=== PATIENT | male | born 1950 | race Caucasian/White ===

== ENCOUNTER → 2019-06-07 | Outpatient (CLI) | payer MEDICARE ==
[2019-06-07 09:53] LABS: HCT 43.1 % (39.0-53.0); HGB 14.3 gm/dL (13.0-17.5); MCH 29.1 pg (25.0-35.0); MCHC 33.2 g/dL (31.0-37.0); MCV 87.5 fL (80.0-100.0); Mean Platelet Volume 8.1; Platelet Count 255 k/uL (150-450); RBC 4.92 m/uL (4.30-5.90); RDW 12.3 % (11.5-15.5); WBC 6.4 k/uL (3.8-10.6)
[2019-06-07 16:51] LABS: African American GFR (CKD) 107.1 (60.0-200.0); Anion Gap 7.2 mmol/L (4.00-12.00); BUN/Creat Ratio 22.5 Ratio (12.00-20.00); Carbon Dioxide 26.8 mmol/L (21.6-31.8); Chol/HDL Ratio 3.59; LDL Cholesterol,Calculated 68.2 mg/dL (0.0-131.0); Magnesium 1.7 mg/dL (1.5-2.4); Non-African American GFR(CKD) 92.4 (60.0-200.0); Potassium 4.3 mmol/L (3.5-5.5); VLDL Calculation 37.8 mg/dL (5.00-40.00)
[2019-06-07 16:59] LABS: T4, Free (Free Thyroxine) 1.1 ng/dL (0.80-1.80)
[2019-06-07 20:21] LABS: Hemoglobin A1C 6.9 % (4.0-6.0)
== END | disposition home or self-care (01) ==
LOC: LABWHC1 09:12
PROVIDERS: ATTEND Nurse Practitioner
DX: I25.10 Atherosclerotic heart disease of native coronary artery without angina pectoris (principal); E11.9 Type 2 diabetes mellitus without complications; R00.2 Palpitations; I10 Essential (primary) hypertension; E78.00 Pure hypercholesterolemia, unspecified; E55.9 Vitamin D deficiency, unspecified; G47.30 Sleep apnea, unspecified
CPT/HCPCS: 36415; 80048; 80061; 82306; 83036; 83735; 84439; 84443; 85027

== ENCOUNTER 2019-12-19 09:02 | Inpatient (IN) | payer MEDICARE ==
[2019-12-19] MEDS ORDERED: SODIUM CHLORIDE 0.9% 1,000 ML IV STA (09:30)
--- NOTE | 2019-12-19 09:44 | ED ---
General Adult HPI - General Chief complaint: Dizziness Stated complaint: blurred vision, dizziness Time Seen by Provider: 12/19/19 09:24 Source: patient, family, RN notes reviewed Mode of arrival: ambulatory Limitations: no limitations - History of Present Illness Initial comments: Patient is a pleasant 69-year-old male presenting to the emergency department with complaints of episodes of being off balance. Symptoms have been present for the past couple of weeks. Symptoms have been getting worse lately. Symptoms usually only last less than a minute however one of the recent days was present the majority of the day. 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 Patient did have some paresthesias of his left leg at one point. No isolated area of weakness. No confusion. No speech changes. - Related Data Home Medications Medication Instructions Recorded Confirmed Brimonidine Tartrate/Timolol 1 drop BOTH EYES BID 12/23/15 12/19/19 [Combigan 0.2%-0.5% Eye Drops] Mometasone/Formoterol [Dulera 100 2 puff INHALATION RT-BID 12/23/15 12/19/19 Mcg-5 Mcg Inhaler] Multivitamins, Thera [Multivitamin 1 tab PO DAILY 12/23/15 12/19/19 (formulary)] Artificial Tears-Hypromellose 1 drop BOTH EYES BID 12/19/19 12/19/19 [Artificial Tear Drops] Aspirin EC [Ecotrin Low Dose] 81 mg PO DAILY 12/19/19 12/19/19 Atorvastatin [Lipitor] 40 mg PO DAILY 12/19/19 12/19/19 Cetirizine HCl [Zyrtec] 10 mg PO DAILY 12/19/19 12/19/19 Latanoprost/Pf [Latanoprost 0.005% 1 drop BOTH EYES HS 12/19/19 12/19/19 Eye Drop] lisinopriL [Zestril] 5 mg PO DAILY 12/19/19 12/19/19 sitaGLIPtin PHOS/metFORMIN HCL 1 tab PO BID 12/19/19 12/19/19 [Janumet 50-1,000 mg Tablet] Previous Rx's Medication Instructions Recorded Clopidogrel [Plavix] 75 mg PO DAILY #90 tab 01/19/16 atenoloL [Tenormin] 25 mg PO DAILY #0 01/19/16 Allergies Allergy/AdvReac Type Severity Reaction Status Date / Time No Known Allergies Allergy Verified 12/19/19 10:24 Review of Systems ROS Statement: Those systems with pertinent positive or pertinent negative responses have been documented in the HPI. ROS Other: All systems not noted in ROS Statement are negative. Constitutional: Denies: fever Eyes: Reports: as per HPI. Denies: eye pain ENT: Denies: ear pain Respiratory: Denies: cough Cardiovascular: Denies: chest pain Endocrine: Denies: fatigue Gastrointestinal: Denies: abdominal pain Genitourinary: Denies: dysuria Musculoskeletal: Denies: back pain Skin: Denies: rash Neurological: Reports: as per HPI. Denies: headache, weakness, confusion Past Medical History Past Medical History: Coronary Artery Disease (CAD), Diabetes Mellitus, Eye Disorder, Hyperlipidemia, Hypertension Additional Past Medical History / Comment(s): GLAUCOMA, PANCREATITIS X2. RECENT ABN STRESS TEST, THEN HAD C.CATH W/ PTCA AND STENT 01/18/16. History of Any Multi-Drug Resistant Organisms: None Reported Past Surgical History: Heart Catheterization With Stent Additional Past Surgical History / Comment(s): HX OF ANGIOPLASTY X2; 01-18-16 HEART CATH W/STENT TO LAD.01-24-16 HEART CATH W/STENTS X2 TO RCA. Past Anesthesia/Blood Transfusion Reactions: No Reported Reaction Date of Last Stent Placement:: 01/18/16 Past Psychological History: No Psychological Hx Reported Smoking Status: Former smoker Past Alcohol Use History: Occasional Past Drug Use History: None Reported - Past Family History Father Family Medical History: Cancer, Diabetes Mellitus Additional Family Medical History / Comment(s): LEUKEMIA Mother Family Medical History: Diabetes Mellitus, Myocardial Infarction ([place]) General Exam Limitations: no limitations General appearance: alert, in no apparent distress Head exam: Present: normocephalic Eye exam: Present: normal appearance, PERRL, EOMI. Absent: nystagmus ENT exam: Present: normal oropharynx Neck exam: Present: normal inspection Respiratory exam: Present: normal lung sounds bilaterally Cardiovascular Exam: Present: regular rate, normal rhythm GI/Abdominal exam: Present: soft. Absent: tenderness Extremities exam: Present: normal inspection Neurological exam: Present: alert, oriented X3, CN II-XII intact. Absent: motor sensory deficit Expanded Neurological exam: Present: protecting the airway Patient oriented to: Present: person, place, time Speech: Present: fluid speech Cranial nerves: EOM's Intact: Normal Cerebellar function: Finger to Nose: Normal Sensory exam: Upper Extremity Light Touch: Normal, Lower Extremity Light Touch: Normal Motor strength exam: RUE: 5, LUE: 5, RLE: 5, LLE: 5 Eye Response: (4) open spontaneously Motor Response: (6) obeys commands Verbal Response: (5) oriented Psychiatric exam: Present: normal affect, normal mood Skin exam: Present: normal color Course Vital Signs 12/19/19 09:08 Temperature 98.1 F Pulse Rate 65 Respiratory 19 Rate Blood Pressure 189/83 O2 Sat by Pulse 97 Oximetry EKG Findings - EKG Comments: EKG Findings:: Normal sinus rhythm cc 6. AZ 158. QRS 86. QT 386. QTc 44. Normal axis. LVH criteria. No acute ST change. Medical Decision Making - Medical Decision Making Patient reevaluated and resting comfortably in bed, remained symptom-free. Case was discussed with Dr. Robert, who will admit covering for Dr. Bazan. Case also discussed with neurology, Dr. Bartlett who will consult however does request discussing case with neural interventional list. Case was also discussed with Dr. Clements, who states patient can be admitted here however does request MRI. He states if there is evidence of stroke consider switching to blunt up. Otherwise he does want to follow-up the patient as an outpatient. - Lab Data Result diagrams: 12/19/19 10:03 12/19/19 10:03 Lab Results 12/19/19 12/19/19 12/19/19 Range/Units 10:03 10:03 10:03 WBC 7.8 (3.8-10.6) k/uL RBC 5.07 (4.30-5.90) m/uL Hgb 14.7 (13.0-17.5) gm/dL Hct 44.1 (39.0-53.0) % MCV 86.9 (80.0-100.0) fL MCH 29.0 (25.0-35.0) pg MCHC 33.4 (31.0-37.0) g/dL RDW 12.6 (11.5-15.5) % Plt Count 233 (150-450) k/uL Neutrophils % 67 % Lymphocytes % 20 % Monocytes % 9 % Eosinophils % 2 % Basophils % 1 % Neutrophils # 5.2 (1.3-7.7) k/uL Lymphocytes # 1.5 (1.0-4.8) k/uL Monocytes # 0.7 (0-1.0) k/uL Eosinophils # 0.2 (0-0.7) k/uL Basophils # 0.1 (0-0.2) k/uL PT 9.7 (9.0-12.0) sec INR 0.9 (<1.2) APTT 23.1 (22.0-30.0) sec Sodium 136 L (137-145) mmol/L Potassium 4.3 (3.5-5.1) mmol/L Chloride 106 (98-107) mmol/L Carbon Dioxide 26 (22-30) mmol/L Anion Gap 4 mmol/L BUN 20 (9-20) mg/dL Creatinine 0.80 (0.66-1.25) mg/dL Est GFR (CKD-EPI)AfAm >90 (>60 ml/min/1.73 sqM) Est GFR (CKD-EPI)NonAf >90 (>60 ml/min/1.73 sqM) Glucose 166 H (74-99) mg/dL Calcium 8.8 (8.4-10.2) mg/dL Total Bilirubin 0.5 (0.2-1.3) mg/dL AST 28 (17-59) U/L ALT 29 (4-49) U/L Alkaline Phosphatase 60 (38-126) U/L Troponin I (0.000-0.034) ng/mL Total Protein 5.9 L (6.3-8.2) g/dL Albumin 3.1 L (3.5-5.0) g/dL 12/19/19 Range/Units 10:03 WBC (3.8-10.6) k/uL RBC (4.30-5.90) m/uL Hgb (13.0-17.5) gm/dL Hct (39.0-53.0) % MCV (80.0-100.0) fL MCH (25.0-35.0) pg MCHC (31.0-37.0) g/dL RDW (11.5-15.5) % Plt Count (150-450) k/uL Neutrophils % % Lymphocytes % % Monocytes % % Eosinophils % % Basophils % % Neutrophils # (1.3-7.7) k/uL Lymphocytes # (1.0-4.8) k/uL Monocytes # (0-1.0) k/uL Eosinophils # (0-0.7) k/uL Basophils # (0-0.2) k/uL PT (9.0-12.0) sec INR (<1.2) APTT (22.0-30.0) sec Sodium (137-145) mmol/L Potassium (3.5-5.1) mmol/L Chloride (98-107) mmol/L Carbon Dioxide (22-30) mmol/L Anion Gap mmol/L BUN (9-20) mg/dL Creatinine (0.66-1.25) mg/dL Est GFR (CKD-EPI)AfAm (>60 ml/min/1.73 sqM) Est GFR (CKD-EPI)NonAf (>60 ml/min/1.73 sqM) Glucose (74-99) mg/dL Calcium (8.4-10.2) mg/dL Total Bilirubin (0.2-1.3) mg/dL AST (17-59) U/L ALT (4-49) U/L Alkaline Phosphatase (38-126) U/L Troponin I <0.012 (0.000-0.034) ng/mL Total Protein (6.3-8.2) g/dL Albumin (3.5-5.0) g/dL - Radiology Data Radiology results: report reviewed (Computed tomography scan the brain reveals no acute process atrophy. CT angiogram of the head and neck shows no stenosis that is significant. No aneurysmal change. Correlate for underlying vertebral basilar insufficiency small caliber distal vertebral arteries into the basilar artery with suspected retrograde filling.) Disposition Clinical Impression: Vertebral basilar insufficiency Disposition: ADMITTED IP TO THIS HOSP Condition: Serious Is patient prescribed a controlled substance at d/c from ED?: No Referrals: Shilpa Bazan MD [Primary Care Provider] - 1-2 days Tucker Clements MD [STAFF PHYSICIAN] - 1-2 days Decision Time: 12:25
[2019-12-19 10:17] LABS: Basophils # (A) 0.1 k/uL (0-0.2); Basophils % (A) 1 %; Eosinophils # (A) 0.2 k/uL (0-0.7); Eosinophils % (A) 2 %; HCT 44.1 % (39.0-53.0); HGB 14.7 gm/dL (13.0-17.5); Lymphocytes # (A) 1.5 k/uL (1.0-4.8); Lymphocytes % (A) 20 %; MCHC 33.4 g/dL (31.0-37.0); MCV 86.9 fL (80.0-100.0); Mean Platelet Volume 8.5; Monocytes # (A) 0.7 k/uL (0-1.0); Monocytes % (A) 9 %; Neutrophils # (A) 5.2 k/uL (1.3-7.7); Neutrophils % (A) 67 %; Platelet Count 233 k/uL (150-450); RBC 5.07 m/uL (4.30-5.90); RDW 12.6 % (11.5-15.5); WBC 7.8 k/uL (3.8-10.6)
[2019-12-19 10:28] LABS: ALT 29 U/L (4-49); AST 28 U/L (17-59); African American GFR (CKD) >90 (>60 ml/min/1.73 sqM); Albumin 3.1 g/dL (3.5-5.0); Alkaline Phosphatase 60 U/L (38-126); Anion Gap 4 mmol/L; Blood Urea Nitrogen 20 mg/dL (9-20); Calcium 8.8 mg/dL (8.4-10.2); Carbon Dioxide 26 mmol/L (22-30); Chloride 106 mmol/L (98-107); Glucose 166 mg/dL (74-99); Non-African American GFR(CKD) >90 (>60 ml/min/1.73 sqM); Potassium 4.3 mmol/L (3.5-5.1); Sodium 136 mmol/L (137-145); Total Bilirubin 0.5 mg/dL (0.2-1.3); Total Protein 5.9 g/dL (6.3-8.2)
[2019-12-19 10:29] LABS: INR 0.9 (<1.2); Partial Thromboplastin Time 23.1 sec (22.0-30.0); Prothrombin Time 9.7 sec (9.0-12.0)
--- NOTE | 2019-12-19 10:56 | CT ---
EXAMINATION TYPE: CT brain wo con DATE OF EXAM: 12/19/2019 HISTORY: Dizziness. Balance issues. CT DLP: 1075.8 mGycm. Automated Exposure Control for Dose Reduction was Utilized. TECHNIQUE: CT scan of the head is performed without contrast. COMPARISON: None. FINDINGS: There is no acute intracranial hemorrhage or midline shift identified. There is diffuse v entricular and sulcal prominence consistent with diffuse cerebral atrophy greatest over bilateral fro ntal lobes. Horowitz-white matter differentiation fairly well-maintained. There is mucosal thickening and fluid in the right maxillary along with bilateral ethmoid and sphenoid and left frontal sinus. Right frontal sinus is hypoplastic The globes are intact and the visualized sinuses are clear. IMPRESSION: No acute intracranial hemorrhage or midline shift. There is mild to moderate diffuse ce rebral atrophy greatest over the bilateral frontal lobes. 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
--- NOTE | 2019-12-19 11:38 | CT ---
EXAMINATION TYPE: CT angio head neck DATE OF EXAM: 12/19/2019 HISTORY: Dizziness, balance issues. COMPARISON: NONE CT DLP: 606.1 mGycm. Automated Exposure Control for Dose Reduction was Utilized. TECHNIQUE: CTA scan of the head and neck are performed with IV Contrast, patient injected with 65 mL of Isovue 370, axial images are obtained, coronal and sagittal reformatted images are reviewed. Thre e-D reconstructed images are created on an independent workstation and reviewed. FINDINGS: Carotid/Vascular Structures: Normal three-vessel origin from aortic arch. Normal origin right common carotid artery from right brachiocephalic artery. No significant stenosis. Right common carotid arter y shows mild peripheral calcified plaque along its course. There is more moderate mixed plaque at the right carotid bulb extending into proximal internal carotid artery without significant stenosis. The re is patent right external carotid artery without significant stenosis. Mild to moderate eccentric mixed plaque left common carotid artery mid segment axial image 39. Mild t o moderate mixed plaque left proximal internal carotid artery just past carotid bulb without signific ant stenosis. Patent external carotid artery without significant stenosis. Tapering of the bilateral distal vertebral arteries. Improved opacification of the distal basilar art edmar, suggesting some retrograde filling of patent bilateral posterior indicating artery is noted. No aneurysmal change or significant focal stenosis. Hypoplastic anterior communicating artery. No significant focal stenosis or aneurysmal change in the anterior circulation. Moderate peripheral calcified plaque supraclinoid segment distal internal carot id arteries bilaterally. Other: Moderate to severe mucosal thickening with dependent fluid right maxillary sinus. Near-complet e opacification of bilateral ethmoid sinuses. Straightening of cervical spine with moderate spurring and disc space narrowing C5-C6 and C6-C7 level s. Posterior spurring effacing the anterior thecal sac at both levels. Some prominent but subcentimeter thoracic lymph nodes in the mediastinum. IMPRESSION: 1. No significant stenosis in common or internal carotid arteries bilaterally. 2. No aneurysmal change at the level of the [place]. Correlate for underlying vertebral basi lar insufficiency as there is tapering or markedly small caliber of the distal vertebral arteries int o the basilar artery with suspected retrograde filling through the [place] of [place].
[2019-12-19] MEDS ORDERED: ASPIRIN 325 MG TAB PO STA (12:26)
[2019-12-19] MEDS ORDERED: SODIUM CHLORIDE 0.9% 1,000 ML IV SCH (12:30)
--- NOTE | 2019-12-19 14:34 | MR ---
"EXAMINATION TYPE: MR brain wo con DATE OF EXAM: 12/19/2019 COMPARISON: CT brain earlier today. HISTORY: Dizziness, balance, Vertebral basilar insufficiency TECHNIQUE: Multiplanar, multisequence imaging of the brain and brainstem is performed without IV cont rast. FINDINGS: Diffusion weighted images demonstrate multifocal areas of increased signal on diffusion weighted imag es with diminished signal on ADC mapping and areas of T2 hyperintensity. There is mid and inferior le ft cerebellar involvement. Reference image 96 series 305. Some right-sided cerebellar involvement is likely present on T2 and FLAIR weighted images. There is brainstem involvement, largest lesions invol ve the gil bilaterally along the ventral aspect, right sided lesion measures 10 x 6 mm on axial imag e 12. Some areas do not show as well signal change on diffusion weighted imaging and ADC mapping . There is persistent diffuse ventricular and sulcal prominence. Occasional scattered scattered tiny fo cus of T2 hyperintensity throughout the white matter bilaterally. Midline structures demonstrate normal morphology. The craniocervical junction appears within normal limits. Abnormal signal voids involving distal vertebral and basilar artery with reconstituted signal void distally near [place]. Mucosal thickening and abnormal fluid signal throughout the bilateral maxillary sphenoid and ethmoid sinuses along with the large left frontal sinus. IMPRESSION: 1. 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 2. When correlating with CTA study, there is vertebral basilar insufficiency felt on basis of thrombu s or occlusion beginning distal vertebral artery level bilaterally through the proximal to mid basil ar artery level as there is better visualized loss of normal signal void with some retrograde flow in to the distal vertebral artery from the [place] suspected. 3. 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 Case discussed with patient's nurse via telephone at time of dictation. A Document Only message has been documented for Storm Mccarty in the [employer] | Critical Result s ystem on 12/19/2019 2:31 PM, Message ID [id number]."
[2019-12-19] MEDS ORDERED: lisinopriL 10 MG TAB PO SCH (15:45)
[2019-12-19] MEDS ORDERED: atenoloL 25 MG TAB PO SCH (15:45)
--- NOTE | 2019-12-19 15:52 | P.CNNES ---
History of Present Illness Consult date: 12/19/19 Requesting physician: Storm Mccarty Reason for Consult: stroke: dizziness, unsteady gait History of Present Illness: This is a 69-year-old handed gentleman medical history of diabetes, retention, significant coronary artery disease status post angioplasty as well as stents that came to the emergency department because of dizziness and unsteady gait and vomiting. Patient is accompanied with his daughter was at bedside and the he stated that his symptoms began about one month ago having dizziness and he could not describe dizziness just felt dizzy, he's been unsteady walk-in which comes and goes, transients repeated episode of slurred speech, and blurry vision in both eyes. The blurry vision is [id number] and we covered either eye it goes away. The episodes last for 10 seconds. Patient was taken to the an oph thalmologist his primary care doctor and no one knew what he had according to the patient and his daughter he was supposed to get an MRI of the brain and as an outpatient today. But because the patient had an episode of vomiting yesterday around 11 PM and was feeling dizzy and then he woke up today then he agreed to come to the hospital. Patient was resistant to come to the hospital because his in the hospital. He has a diabetes and hypertension for the last 5 years. He is taking aspirin 81 mg and Plavix 75 mg as well as Lipitor 40 mg daily. He is compliant taking his medication. His sugars 1 and between 140s to 160s. In the past he was told by his primary care physician that he thought he patient had atrial fibrillation he went to inside per diem rn but the per diem rn said that he did not have the atrial fibrillation. So patient was never placed on any anticoagulation as a result. In the ED the patient had CT of the head which was reported as no acute intracranial hemorrhage or midline shift. There is mild to moderate diffuse cerebral atrophy greatest over the basilar frontal lobe. 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 Patient had CT angiogram of the head and was reported as correlate for underlying vertebrobasilar insufficiency as there is tapering or Patsy small caliber of the distal vertebral arteries into the basilar artery with suspected retrograde filling through the [place]. No significant stenosis in the common or internal carotid arteries bilaterally. There was aneurysm. Patient did not get tpa since per ED had no symptoms and was outside window. The ED contacted me personally and regarding this patient and I notified them the to get a hold of the stroke team for possible intervention. They spoke with Dr. Clements and it was felt there is no intervention at. MRI the brain stat: Was reported as evidence of multifocal leuk 1 and subacute infarct in the posterior circulation involving the brainstem with the greatest involvement seen in the gil and involving the mid to inferior cerebellar hemisphere, left greater than right. 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 Also acute on chronic paranasal pansinusitis. Review of Systems Review of system: The 12 point system was reviewed and apparent positive and negative per HPI. Past Medical History Past Medical History: Coronary Artery Disease (CAD), Diabetes Mellitus, Eye Disorder, Hyperlipidemia, Hypertension, Sleep Apnea/CPAP/BIPAP Additional Past Medical History / Comment(s): NIDDM type II, neuropathy bilateral feet, pancreatitis x2, FORREST-does not wear device. History of Any Multi-Drug Resistant Organisms: None Reported Past Surgical History: Heart Catheterization With Stent, Tonsillectomy Additional Past Surgical History / Comment(s): PCI with stent in LAD/RCA, cardiac angioplasty in , bilateral laser eye surgery for glaucoma, colonoscopy Past Anesthesia/Blood Transfusion Reactions: No Reported Reaction Date of Last Stent Placement:: 01/24/16 Past Psychological History: No Psychological Hx Reported Additional Psychological History / Comment(s): Pt resides alone, his shabbir and her family live next door. Pt is independent. Smoking Status: Former smoker Past Alcohol Use History: Occasional Additional Past Alcohol Use History / Comment(s): Pt started smoking in 1966 and quit in 1982 Past Drug Use History: None Reported - Past Family History Father Family Medical History: Cancer Additional Family Medical History / Comment(s): LEUKEMIA Mother Family Medical History: Diabetes Mellitus Medications and Allergies Home Medications Medication Instructions Recorded Confirmed Type Brimonidine Tartrate/Timolol 1 drop BOTH EYES BID 12/23/15 12/19/19 History [Combigan 0.2%-0.5% Eye Drops] Mometasone/Formoterol [Dulera 100 2 puff INHALATION RT-BID 12/23/15 12/19/19 History Mcg-5 Mcg Inhaler] Multivitamins, Thera [Multivitamin 1 tab PO DAILY 12/23/15 12/19/19 History (formulary)] Clopidogrel [Plavix] 75 mg PO DAILY #90 tab 01/19/16 12/19/19 Rx atenoloL [Tenormin] 25 mg PO DAILY #0 01/19/16 12/19/19 Rx Artificial Tears-Hypromellose 1 drop BOTH EYES BID 12/19/19 12/19/19 History [Artificial Tear Drops] Aspirin EC [Ecotrin Low Dose] 81 mg PO DAILY 12/19/19 12/19/19 History Atorvastatin [Lipitor] 40 mg PO DAILY 12/19/19 12/19/19 History Cetirizine HCl [Zyrtec] 10 mg PO DAILY 12/19/19 12/19/19 History Latanoprost/Pf [Latanoprost 0.005% 1 drop BOTH EYES HS 12/19/19 12/19/19 History Eye Drop] lisinopriL [Zestril] 10 mg PO DAILY 12/19/19 12/19/19 History sitaGLIPtin PHOS/metFORMIN HCL 1 tab PO BID 12/19/19 12/19/19 History [Janumet 50-1,000 mg Tablet] Allergies Allergy/AdvReac Type Severity Reaction Status Date / Time No Known Allergies Allergy Verified 12/19/19 10:24 Physical Examination - Vital Signs Vital Signs: Vital Signs Temp Pulse Resp BP Pulse Ox 12/19/19 13:28 98.4 F 65 20 200/98 96 12/19/19 13:04 98.1 F 60 18 181/94 97 12/19/19 09:08 98.1 F 65 19 189/83 97 Intake and Output 12/19/19 12/19/19 12/19/19 06:59 14:59 22:59 Other: Weight 92.17 kg GENERAL: The patient is lying in bed and is not in acute distress. CHEST: The heart rate is regular rate rhythm. No murmurs to auscultation. No carotid bruit bilaterally----. LUNG: Clear to auscultation bilaterally no wheezing noted throughout. Not labored breathing. ABDOMEN/GI: Bowel sounds present in all 4 quadrants. No tenderness to palpation throughout. NEUROLOGICAL: Higher mental function: The patient is awake, alert, oriented to self, place and time. Patient is following commands. No aphasia and no neglect. Cranial nerves: The pupils are round, equal and reactive to light and accommodation. Visual jacobson: defect over the bilateral upper jacobson to confrontation throughout. Extraocular movement is intact no nystagmus is noted. Facial sensation is normal to touch throughout. The facial strength is normal throughout. Hearing is normal bilaterally to hand rub. Tongue is midline and moved [id number]-go-[id number] without any difficulty. No dysarthria is noted. Shoulder shrug is normal bilaterally. Motor: Gait: Normal and was not swaying towarding onse side or other. The strength is 5 over 5 throughout. Normal tone and bulk. Cerebellum: Normal finger to nose heel to chin bilaterally. Sensation: Sensation is normal to touch throughout. Reflexes (right/left): 2+ Plantars: Upgoing over the right and downgoing over the left. Results CT of the head which was reported as no acute intracranial hemorrhage or midline shift. There is mild to moderate diffuse cerebral atrophy greatest over the basilar frontal lobe. 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 CT angiogram of the head and was reported as correlate for underlying vertebrobasilar insufficiency as there is tapering or Patsy small caliber of the distal vertebral arteries into the basilar artery with suspected retrograde filling through the [place]. No significant stenosis in the common or internal carotid arteries bilaterally. There was aneurysm. - Laboratory Findings Comments: Patient's PT is 9.7, INR is 0.9, PTT is 23.1. CBC and BMP: 12/19/19 10:03 12/19/19 10:03 Abnormal Lab Findings: Abnormal Labs 12/19/19 10:03 Sodium 136 L Glucose 166 H Total Protein 5.9 L Albumin 3.1 L Assessment and Plan Assessment: This is a 69-year-old handed gentleman medical history of diabetes, hypertention, significant coronary artery disease status post angioplasty as well as stents that came to the emergency department because of dizziness, unsteady gait, slurred speech, vomiting and diplopia on either eye for past on month. His symptoms are intermittent. He decided to come to the hospital today because he had an episode of vomitting and dizziness yesterday and continued to have dizziness upon walking up today. Currently his exam shows field cut on bilateral upper jacobson. There is questionable atrial fibrillation Brainstem stroke Plan: -CT of the head which was reported as no acute intracranial hemorrhage or midline shift. There is mild to moderate diffuse cerebral atrophy greatest over the basilar frontal lobe. 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 -CT angiogram of the head and was reported as correlate for underlying vertebrobasilar insufficiency as there is tapering or Patsy small caliber of the distal vertebral arteries into the basilar artery with suspected retrograde filling through the [place]. No significant stenosis in the common or internal carotid arteries bilaterally. There was aneurysm. -MRI the brain stat: Was reported as evidence of multifocal leuk 1 and subacute infarct in the posterior circulation involving the brainstem with the greatest involvement seen in the gli and involving the mid to inferior cerebellar hemisphere, left greater than right. 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 Also acute on chronic paranasal pansinusitis. -The EKG showed normal sinus rhythm. Ventricle rate was 66. Minimal voltage criteria for left ventricular may be normal variant. Patient is on ASA 81mg, Plavix 75mg and Lipitor 40mg daily. I will stop Plavix and start Brilinta 90mg bid with one STAT dose. Also will increase Lipitor to 80mg daily with one STAT dose. Spoke with Dr. Clements regarding patient and because of patient fluctuation and Imaging finding it was decided to transfer the patient to [facility] for escalation of care. Thank you for the consultation Ochoa Lantigua MD Neuro-hospitalist Time with Patient: Greater than 30
[2019-12-19] MEDS ORDERED: ATORVASTATIN 80 MG TAB PO STA (16:59)
--- NOTE | 2019-12-19 19:47 | HP ---
HISTORY AND PHYSICAL COMBINED HISTORY AND PHYSICAL AND DISCHARGE SUMMARY: CHIEF COMPLAINT: Dizziness and gait instability and blurred vision. HISTORY OF PRESENT ILLNESS: This 69-year-old gentleman with a past medical history of multiple medical problems, including CAD, diabetes mellitus, hypertension, hyperlipidemia, history of sleep apnea, history of CAD and stent, being followed by Dr. Bazan in the outpatient setting, was complaining of dizziness and visual blurring for the past few days. Last night the patient had increasing dizziness. The patient also vomited. Because of increased symptoms, the patient was taken to [facility] and admitted for further evaluation and treatment. There is no history of any fever, rigor or chills. No history of headache, loss of consciousness, seizures. PAST MEDICAL HISTORY: CAD, diabetes mellitus, hypertension, hyperlipidemia, sleep apnea. HOME MEDICATIONS: 1. Zestril 10 mg p.o. daily. 2. Janumet 1 p.o. b.i.d. 3. Tenormin 25 mg daily. 4. Multivitamins 1 p.o. daily. 5. Dulera b.i.d. 6. Latanoprost at bedtime. 7. Plavix 75 mg p.o. daily. 8. Zyrtec 10 mg daily. 9. Combigan 1 drop b.i.d. 10.Lipitor 40 mg p.o. daily. 11.Ecotrin 81 mg p.o. daily. 12.Artificial Tears 1 drop b.i.d. ALLERGIES: NONE. FAMILY HISTORY: History of cancer, leukemia. SOCIAL HISTORY: Previous history of smoking. Occasional alcohol intake. REVIEW OF SYSTEMS: ENT: As mentioned earlier. CARDIOVASCULAR SYSTEM: No angina, palpitations. RESPIRATORY SYSTEM: As mentioned earlier. GI: As mentioned earlier. : No dysuria or retention. NERVOUS SYSTEM: No numbness, weakness. ALLERGY/IMMUNOLOGY: No asthma, hayfever. MUSCULOSKELETAL: As mentioned earlier. HEMATOLOGY/ONCOLOGY: No history of anemia. ENDOCRINE: History of diabetes. No hypothyroidism. CONSTITUTIONAL: As mentioned earlier. DERMATOLOGY: Negative. RHEUMATOLOGY: Negative. PSYCHIATRY: As mentioned earlier. PHYSICAL EXAMINATION: Patient alert and oriented x3. Pulse 52, blood pressure 119/100, respirations 16, temperature 98.4, pulse ox 97% on room air. HEENT: Conjunctivae normal. Oral mucosa moist. NECK: No jugular venous distention. No carotid bruit. No lymph node enlargement. CARDIOVASCULAR SYSTEM: S1, S2 muffled. RESPIRATORY SYSTEM: Breath sounds diminished at the bases. No rhonchi. No crackles. ABDOMEN: Soft, non-tender. No mass palpable. LEGS: No edema. No swelling. NERVOUS SYSTEM: Higher functions as mentioned earlier. Cranial nerves 2 to 12 grossly intact. No nystagmus. No diplopia. The gait is slightly unstable. Otherwise, no weakness. Finger-nose incoordination minimal noted on the left side. SKIN: No ulcer, rash, bleeding. JOINTS: No active deforming arthropathy. LYMPHATICS: No lymph node palpable in neck, axillae or groin. LABS: CBC within normal limits. Sodium is 136, glucose 166. Albumin is 3.1. The brain MRI, which was personally reviewed by me, showed multiple abnormalities, evidence of multifocal lacunar subacute infarcts in the posterior circulation in the brainstem with greatest involvement in the gil and involving the mid and inferior cerebral hemisphere on the left greater than the right. Vertebral basilar insufficiency felt on the basis of thrombus or occlusion beginning at the distal vertebral artery level bilaterally, acute on chronic paranasal pansinusitis. ASSESSMENT: 1. 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 2. Possible two-vessel occlusion, as mentioned earlier, and vertebrobasilar insufficiency as mentioned earlier. 3. Hyponatremia. 4. Gait dysfunction. 5. History of coronary artery disease. 6. Diabetes mellitus, type 2. 7. Hyperlipidemia. 8. Hypertension. 9. Sleep apnea. 10.History of peripheral neuropathy. 11.History of pancreatitis. 12.History of sleep apnea. 13.History of coronary artery disease, stent. 14.History of glaucoma. 15.Remote history of nicotine dependence. 16.FULL CODE. RECOMMENDATIONS AND DISCUSSION: In this 69-year-old gentleman who presented with multiple medical issues, I would recommend to continue current medications, continue with symptomatic treatment. Antiplatelets initiated. Neurology saw the patient. Brilinta has been initiated. The neurologist also discussed the case with neurointerventionist in [place], who would like the patient to be transferred for further evaluation and treatment. So the patient will be transferred to [place] for further evaluation and treatment. The patient is currently stable, but overall prognosis is guarded because of the above-mentioned multiple complex medical issues. Discussed with the family at length, who understands and agrees. Please refer to the medication reconciliation sheet for the current medication list, home medications, and a copy of this dictation will be forwarded to Dr. Bazan, who is the primary physician. MMSANGITAL / VINODN: [id number] /
[2019-12-19] MEDS ORDERED: TICAGRELOR 90 MG TAB PO SCH (21:00)
[2019-12-19] MEDS ORDERED: ATORVASTATIN 80 MG TAB PO SCH (21:00)
[2019-12-19] MEDS ORDERED: ARTIFICIAL TEARS-HYPROMELLOSE DROPS 15 ML BTL BOTH EYES SCH (21:00)
[2019-12-19] MEDS ORDERED: LATANOPROST 0.005% OPHTH DROPS 2.5 ML BTL BOTH EYES SCH (21:00)
[2019-12-19] MEDS ORDERED: TIMOLOL 0.5% OPHTH DROPS 5 ML BTL BOTH EYES SCH (21:00)
[2019-12-19] MEDS ORDERED: BRIMONIDINE TARTRATE 0.2% DROPS 5 ML BTL BOTH EYES SCH (21:00)
[2019-12-19 21:35] VITALS: BP 200/100; PULSE 55; RESP 18; TEMP 98.2
[2019-12-20] MEDS ORDERED: ASPIRIN 81 MG PO SCH (09:00)
[2019-12-20] MEDS ORDERED: ASPIRIN 325 MG TAB PO SCH (09:00)
[2019-12-20] MEDS ORDERED: ATORVASTATIN 40 MG TAB PO SCH (09:00)
--- NOTE | 2019-12-20 14:40 | ECHOF ---
Referral Reason:Thrombus MEASUREMENTS -------- HEIGHT: 175.3 cm WEIGHT: 92.1 kg BP: 189/83 RVIDd: 4.1 cm (< 3.3) IVSd: 1.1 cm (0.6 - 1.1) LVIDd: 4.9 cm (3.9 - 5.3) LVPWd: 1.2 cm (0.6 - 1.1) IVSs: 1.8 cm LVIDs: 2.8 cm LVPWs: 1.8 cm LA Diam: 4.1 cm (2.7 - 3.8) LAESV Index (A-L): 30.89 ml/m Ao Diam: 3.7 cm (2.0 - 3.7) AV Cusp: 2.2 cm (1.5 - 2.6) MV EXCURSION: 16.312 mm (> 18.000) MV EF SLOPE: 65 mm/s (70 - 150) EPSS: 0.7 cm MV E Corby: 0.84 m/s MV DecT: 129 ms MV A Corby: 0.76 m/s MV E/A Ratio: 1.10 AR PHT: 532 ms RAP: 5.00 mmHg RVSP: 56.76 mmHg FINDINGS -------- Sinus rhythm. This was a technically good study. The left ventricular size is normal. There is borderline concentric left ventricular hypertrophy. Overall left ventricular systolic function is normal with, an EF between 60 - 65 %. The right ventricle is moderately enlarged. LA is midly dilated 29-33ml/m2. The right atrium is normal in size. Interatrial and interventricular septum intact. The aortic valve is trileaflet and appears structurally normal. There is vjdm-[id number]-vgbkplet aortic re gurgitation. Moderate mitral regurgitation is present. Mild tricuspid regurgitation present. There is moderate to severe pulmonary hypertension. The rig ht ventricular systolic pressure, as measured by Doppler, is 56.76mmHg. Trace/mild (physiologic) pulmonic regurgitation. The aortic root size is normal. Normal inferior vena cava with normal inspiratory collapse consistent with estimated right atrial pre ssure of 5 mmHg. There is no pericardial effusion. CONCLUSIONS -------- 1. The left ventricular size is normal. 2. There is borderline concentric left ventricular hypertrophy. 3. Overall left ventricular systolic function is normal with, an EF between 60 - 65 %. 4. The right ventricle is moderately enlarged. 5. LA is midly dilated 29-33ml/m2. 6. The aortic valve is trileaflet and appears structurally normal. 7. There is [id number] aortic regurgitation. 8. Moderate mitral regurgitation is present. 9. Mild tricuspid regurgitation present. 10. There is moderate to severe pulmonary hypertension. 11. The right ventricular systolic pressure, as measured by Doppler, is 56.76mmHg. 12. Trace/mild (physiologic) pulmonic regurgitation. 13. There is no pericardial effusion. CHANNEL MACHINE OPERATOR: Nadine Recinos RDCS
== END 2019-12-19 21:48 | disposition short-term general hospital (02) | DRG 65 ==
LOC: EC 09:02 → 3SCARD 12:27
PROVIDERS: ADMIT Internal Medicine; ATTEND Internal Medicine
DX: I63.213 Cerebral infarction due to unspecified occlusion or stenosis of bilateral vertebral arteries (principal); E87.1 Hypo-osmolality and hyponatremia; G46.3 Brain stem stroke syndrome; G45.0 Vertebro-basilar artery syndrome; I11.9 Hypertensive heart disease without heart failure; E11.39 Type 2 diabetes mellitus with other diabetic ophthalmic complication; E11.42 Type 2 diabetes mellitus with diabetic polyneuropathy; J01.41 Acute recurrent pansinusitis; H53.8 Other visual disturbances; R20.2 Paresthesia of skin; R42 Dizziness and giddiness; R47.81 Slurred speech; R26.89 Other abnormalities of gait and mobility; R40.2362 Coma scale, best motor response, obeys commands, at arrival to emergency department; R40.2142 Coma scale, eyes open, spontaneous, at arrival to emergency department; R40.2252 Coma scale, best verbal response, oriented, at arrival to emergency department; R29.700 NIHSS score 0; E78.5 Hyperlipidemia, unspecified; I25.10 Atherosclerotic heart disease of native coronary artery without angina pectoris; H40.9 Unspecified glaucoma; H42 Glaucoma in diseases classified elsewhere; G47.33 Obstructive sleep apnea (adult) (pediatric); Z79.82 Long term (current) use of aspirin; Z79.02 Long term (current) use of antithrombotics/antiplatelets; Z79.84 Long term (current) use of oral hypoglycemic drugs; Z79.51 Long term (current) use of inhaled steroids; Z79.899 Other long term (current) drug therapy; Z87.19 Personal history of other diseases of the digestive system; Z95.5 Presence of coronary angioplasty implant and graft; Z87.891 Personal history of nicotine dependence; Z83.3 Family history of diabetes mellitus; Z82.49 Family history of ischemic heart disease and other diseases of the circulatory system; Z80.6 Family history of leukemia
CPT/HCPCS: 36415; 70450; 70496; 70498; 70551; 80053; 84484; 85025; 85610; 85730; 93005; 93306; 96360; 96361; 99285

== ENCOUNTER → 2020-09-29 | Outpatient (CLI) | payer MEDICARE ==
--- NOTE | 2020-09-29 15:30 | CONS ---
CONSULTATION DATE OF SERVICE: 09/29/2020 This 70-year-old gentleman has [facility] for obstructive sleep apnea-hypopnea syndrome. HISTORY OF PRESENT ILLNESS/SLEEP-WAKE EVALUATION: The patient was diagnosed with obstructive sleep apnea 5 years ago and was started on treatment with CPAP at that time, but he was not able to use the CPAP. He does not like it. He does not use it. His sleep schedule is from 10 p.m. until 6:30 or 7 a.m., basically 7 days a week. Sometimes he has problems with falling asleep. He has a TV set in the bedroom. He usually sleeps on the back position. He snores and has episodes of stopped breathing during sleep. He wakes up from sleep 2 times with nocturia. No history of hypnagogic hallucinations, sleep paralysis or cataplexy. During the day he usually does not take naps. Gipsy Sleepiness Scale is 6, but he has problems with memory. PAST MEDICAL HISTORY: Positive for hypertension, coronary artery disease, stroke with visual changes one year ago, asthma, allergies, diabetes mellitus, hyperlipidemia, increased eye pressure. PAST SURGICAL HISTORY: Stent insertions about 3 or 4 years ago. MEDICATIONS: 1. Atorvastatin 80 mg once a day. 2. Janumet once a day. 3. Lisinopril 20 mg twice a day. 4. Atenolol 25 mg twice a day. 5. Dulera inhaler in the morning. 6. Brilinta 90 mg twice a day. 7. Zyrtec at bedtime. 8. Aspirin 81 mg once a day. 9. Lasix once a day; did not indicate dose. 10.Eye drops, latanoprost. 11.Combigan. SOCIAL HISTORY: Positive for smoking in the past; quit 37 years ago. Alcohol consumption: None. FAMILY HISTORY: Heart problems. REVIEW OF SYSTEMS: No fevers. No double vision. No recent chest pain. No shortness of breath. No abdominal pain. No bleeding episodes. No blood in the urine. No seizure episodes. Awakenings from sleep, memory problems. PHYSICAL EXAMINATION: GENERAL: A pleasant gentleman without distress. VITAL SIGNS: BP 201/94, HR 51, RR 18, height 5 feet 8 inches, weight 197.0, temperature 98.0, oxygen saturation at room air 98%, body mass index 29.9. HEENT: PERRLA, EOMI. Evaluation of oropharynx showed tongue protrudes midline. Extremely low position of soft palate. Mallampati IV. NECK: Supple. No JVD. Thyroid is not palpable. Neck is wide, 17 inches in circumference. LUNGS: Clear to percussion and to auscultation. Good air exchange. No wheezing or rhonchi. HEART: S1, S2 regular. No murmurs, gallops or rubs. ABDOMEN: Soft and nontender. Bowel sounds are present. No organomegaly appreciated. EXTREMITIES: No clubbing or cyanosis. FLORICULTURE TEACHER: Awake, alert, and oriented X3. Cranial nerves 2 to 7 intact. There is no fasciculation or atrophy. noted. No focal deficits observed. IMPRESSION: 1. History of obstructive sleep apnea diagnosed 5 years ago in another institution. Patient does not use CPAP treatment. He has loud snoring, episodes of stopped breathing during sleep, extremely low position of soft palate, Mallampati IV, wide neck, 17 inches in circumference; obstructive sleep apnea-hypopnea syndrome. 2. Overweight, borderline to obesity. BMI 29.9. 3. Hypertension. 4. Coronary artery disease, status post stent insertion. 5. History of stroke about one year ago with changes of vision. No residual deficit. 6. Hyperlipidemia. 7. Asthma. 8. Allergies. 9. Diabetes mellitus. 10.Increased eye pressure. PLAN: 1. Polysomnography for evaluation of patient's breathing during sleep. 2. CPAP/BiPAP titration if sleep study confirms obstructive sleep apnea-hypopnea syndrome. 3. Preferable position during sleep on the side. 4. No driving if patient feels any sleepiness. 5. I will see patient for follow up visit to explain results of testing and following plan. Thank you very much for referring this patient for consultation. Sincerely, Mike Angulo MD, PhD, FAASM Diplomat of [place] Board of Medical Specialties [place] Board of Internal Medicine Monkey Keeper of [facility] [place] MMODL / VINODN: [id number] /
== END ==
CPT/HCPCS: 99211

== ENCOUNTER → 2020-11-01 | Outpatient (CLI) | payer MEDICARE ==
--- NOTE | 2020-11-01 10:24 | MR ---
MR brain without contrast HISTORY: Cerebral infarction, I 63.9 Multiplanar multisequence imaging through the brain Correlation to brain MRI 12/19/2019 previous identified areas of brainstem infarct, left cerebellar inf arct noted on prior exam show improvement in hyperintensity and inversion recovery T2-weighted sequen frank as compared to prior. There is some residual hyperintensity present seen best on T2-weighted sequ ences, smaller area of the gil shows encephalomalacia consistent with remote infarct. There are norm al vascular flow voids in the anterior circulation, basilar artery shows flow void on T2, right verte bral artery shows some intermediate signal similar to prior exam, proximal improvement in flow void n oted in the left vertebral artery distally. There is no hemorrhage or hydrocephalus. Cortical atrophy is noted. Periventricular confluent and scattered hyperintensity and inversion recovery and T2-weigh mary sequences is similar to prior. The corpus callosum, pituitary, cervical medullary junction, cereb ellopontine angles are unremarkable. There is extensive inflammatory change in the ethmoid air cells, frontal sinus similar to prior exam, some improvement in the maxillary sinus disease. Orbits show symmetric appearance. IMPRESSION: Evidence of cerebrovascular accident involving the gil as described. Abnormal signal in the vertebrobasilar system shows a slight interval change, vessels of the posterior circulation remai n diminutive. Extensive sinus disease.
== END | disposition home or self-care (01) ==
LOC: RADMRIMAIN 06:15
PROVIDERS: ATTEND Psychiatry & Neurology Vascular Neurology
DX: I63.9 Cerebral infarction, unspecified (principal); G93.89 Other specified disorders of brain
CPT/HCPCS: 70551; 82565; 84520

== ENCOUNTER → 2020-11-18 | Outpatient (CLI) | payer MEDICARE | END | disposition home or self-care (01) | LOC: RADCTMAIN 06:51 | PROVIDERS: ATTEND Psychiatry & Neurology Vascular Neurology | DX: Z53.9 Procedure and treatment not carried out, unspecified reason (principal) | CPT/HCPCS: 82565; 84520 ==

== ENCOUNTER → 2021-03-23 | Outpatient (CLI) | payer MEDICARE ==
--- NOTE | 2021-03-24 00:22 | SFUN ---
SLEEP CENTER FOLLOW UP NOTE DATE OF SERVICE: 03/23/2021. 70-year-old gentleman has been followed in [facility] for treatment of obstructive sleep apnea-hypopnea syndrome. Recently, the patient had polysomnogram which showed the patient has obstructive sleep apnea. Then he had CPAP titration. I order for him CPAP equipment. Today is his first visit after he started to use CPAP treatment. The patient feels better with the machine. He sleeps better. He is not using humidifier at all. Feels better without the heating. [place] Sleepiness Scale today is 4, which is totally normal. I discussed results of the sleep studies with patient in detail. I checked his CPAP unit. Range of the pressure 5-8. Average pressure 7.8 cm of water. Usage in December, January 97% of the time and 87% of the time more than 4 hours. For the last month, the patient did not use it for 1 week. Subsequently, compliance is slightly less, but average still in good range 6.8 hours per night. Leak is 0 L/minute. perfect. Apnea-hypopnea index is only 1.4 which is totally normal. MEDICATIONS: Atorvastatin, Janumet, lisinopril, atenolol, Dulera inhaler, Zyrtec, aspirin, Lasix, latanoprost, Combigan. PHYSICAL EXAMINATION: GENERAL: Patient in no distress. BP 150/71, HR 50, RR 16, weight 194.6, temperature 97.3, oxygen saturation at room air 98%. Oropharynx: Extremely low position of soft palate, Mallampati 4. NECK: Supple, no JVD. Thyroid is not palpable. LUNGS: Clear to percussion and to auscultation. Good air exchange. No wheezing or rhonchi. HEART: S1, S2 regular. No murmurs, gallops, or rubs. ABDOMEN: Soft and nontender. Bowel sounds are present. No organomegaly appreciated. EXTREMITIES: No clubbing or cyanosis. NEIGHBORHOOD AIDE: Awake, alert, and oriented X3. Cranial nerves 2 to 7 intact. There is no fasciculation or atrophy. noted. No focal deficits observed. IMPRESSION: 1. Moderate obstructive sleep apnea-hypopnea syndrome, apnea-hypopnea index 20.3 with oxygen desaturation to 75.7%. Full normalization of respiration on CPAP. The patient demonstrated borderline compliance with treatment. 2. Hypertension. 3. Coronary artery disease, status post stent insertion. 4. History of stroke about one year ago without residual deficit. 5. Hyperlipidemia. 6. Asthma. 7. Allergies. 8. Diabetes mellitus. 9. Increased eye pressure. PLAN: 1. The patient does not want to use heated humidity. I adjusted humidity down to 0. Previously patient used it without water which increases risk for the fire. We discussed with the patient on details how to adjust humidity. He promised to follow recommendations. 2. Patient will continue to use PAP equipment every night for the whole night. 3. Sleep hygiene with regular time in bed for at least 7-1/2 to 8 hours. 4. Precautions related to driving. No driving if feeling sleepiness. 5. I will maintain all necessary prescription for PAP supplies including mask, tube, filters. 6. Watching weight. 7. Follow-up visit in 6 months or earlier if patient has any problems. Thank you very much for allowing me to participate in the management of your patient. Sincerely, Mike Angulo MD, PhD, FAASM Diplomat of [employer] Sleep Medicine Board of [employer] [facility] [place] MMODL / IJN: [id number] /
== END ==
LOC: SLEEP 13:13
PROVIDERS: ATTEND Internal Medicine
DX: G47.33 Obstructive sleep apnea (adult) (pediatric) (principal); G47.36 Sleep related hypoventilation in conditions classified elsewhere; I10 Essential (primary) hypertension; I25.10 Atherosclerotic heart disease of native coronary artery without angina pectoris; E78.5 Hyperlipidemia, unspecified; J45.909 Unspecified asthma, uncomplicated; T78.40XA Allergy, unspecified, initial encounter; E11.9 Type 2 diabetes mellitus without complications; H40.059 Ocular hypertension, unspecified eye; Z99.89 Dependence on other enabling machines and devices; Z95.5 Presence of coronary angioplasty implant and graft; Z86.73 Personal history of transient ischemic attack (TIA), and cerebral infarction without residual deficits; Z79.82 Long term (current) use of aspirin; Z79.899 Other long term (current) drug therapy

== ENCOUNTER → 2021-04-11 | Outpatient (CLI) | payer MEDICARE ==
--- NOTE | 2021-04-11 12:02 | US ---
EXAMINATION TYPE: US kidneys/renal and bladder DATE OF EXAM: 04/11/2021 COMPARISON: NONE CLINICAL HISTORY: N18.30 CKD. EXAM MEASUREMENTS: Right Kidney: 11.1x5.9x5.6 cm Left Kidney: 11.2x6.1x6.1 cm Right Kidney: No hydronephrosis or masses seen Left Kidney: 1.1x1.0x0.9 cysts noted. Bladder: wnl Bilateral Jets seen: Yes There is no evidence for hydronephrosis at this point in time. No nephrolithiasis is seen. No solid masses are identified. The urinary bladder is anechoic. Bilateral ureteral jets are seen. IMPRESSION: Tiny left renal cyst.
== END | disposition home or self-care (01) ==
LOC: RADUSWWP 10:33
PROVIDERS: ATTEND Internal Medicine Nephrology
DX: N18.30 Chronic kidney disease, stage 3 unspecified (principal); N28.1 Cyst of kidney, acquired
CPT/HCPCS: 76770

== ENCOUNTER 2022-08-14 11:22 | Observation (INO) | payer MEDICARE ==
[2022-08-14] MEDS ORDERED: ALPRAZolam 0.25 MG TAB PO PRN (11:36)
[2022-08-14] MEDS ORDERED: NITROGLYCERIN SL TABS 0.4 MG TAB SUBLINGUAL PRN (11:36)
[2022-08-14] MEDS ORDERED: ALPRAZolam 0.5 MG TAB PO PRN (11:36)
[2022-08-14 18:01] LABS: Basophils % (A) 0 %; Eosinophils # (A) 0.4 k/uL (0-0.7); Eosinophils % (A) 4 %; HCT 39.8 % (39.0-53.0); HGB 14.3 gm/dL (13.0-17.5); Lymphocytes # (A) 2.4 k/uL (1.0-4.8); Lymphocytes % (A) 24 %; MCH 30.4 pg (25.0-35.0); MCHC 35.9 g/dL (31.0-37.0); MCV 84.7 fL (80.0-100.0); Mean Platelet Volume 9.5; Monocytes # (A) 1.1 k/uL (0-1.0); Monocytes % (A) 11 %; Neutrophils # (A) 5.9 k/uL (1.3-7.7); Neutrophils % (A) 58 %; Platelet Count 191 k/uL (150-450); RDW 13.9 % (11.5-15.5); WBC 10.1 k/uL (3.8-10.6)
[2022-08-14 18:14] LABS: African American GFR (CKD) 25 (>60 ml/min/1.73 sqM); Anion Gap 9 mmol/L; Blood Urea Nitrogen 52 mg/dL (9-20); Calcium 9.2 mg/dL (8.4-10.2); Carbon Dioxide 21 mmol/L (22-30); Chloride 105 mmol/L (98-107); Glucose 111 mg/dL (74-99); Non-African American GFR(CKD) 22 (>60 ml/min/1.73 sqM); Sodium 135 mmol/L (137-145)
[2022-08-14] MEDS: SODIUM CHLORIDE 0.9% 1,000 ML in EMPTY BAG 1 BAG IV SCH ×2 (18:24→20:44)
[2022-08-14 18:27] LABS: Potassium 5.4 mmol/L (3.5-5.1)
[2022-08-14] MEDS: SYMBICORT 80-4.5 MCG INHALER INHALATION SCH (19:41)
[2022-08-14 20:47] LABS: Glucose,Whole Blood 180 mg/dL (70-110)
[2022-08-15] MEDS ORDERED: HEPARIN SODIUM,PORCINE 10,000 UNIT in SODIUM CHLORIDE 0.9% 1,000 ML IRRIGATION PRN (07:00)
[2022-08-15] MEDS ORDERED: HEPARIN SODIUM,PORCINE 2,500 UNIT in SODIUM CHLORIDE 0.9% 250 ML IRRIGATION PRN (07:00)
[2022-08-15] MEDS: SODIUM CHLORIDE 0.9% 1,000 ML in EMPTY BAG 1 BAG IV SCH (08:00)
[2022-08-15] MEDS: ARTIFICIAL TEARS-HYPROMELLOSE DROPS 15 ML BTL BOTH EYES SCH ×2 (08:04→21:59)
[2022-08-15] MEDS: BRIMONIDINE TARTRATE 0.2% DROPS 5 ML BTL BOTH EYES SCH ×2 (08:04→21:59)
[2022-08-15] MEDS: TIMOLOL 0.5% OPHTH DROPS 5 ML BTL BOTH EYES SCH ×2 (08:04→21:59)
[2022-08-15] MEDS: SYMBICORT 80-4.5 MCG INHALER INHALATION SCH ×2 (08:13→18:38)
[2022-08-15 08:35] LABS: Glucose,Whole Blood 113 mg/dL (70-110)
[2022-08-15] MEDS ORDERED: CLOPIDOGREL 75 MG TAB PO SCH (09:00)
[2022-08-15] MEDS ORDERED: LORATADINE 10 MG TAB PO SCH (09:00)
[2022-08-15] MEDS ORDERED: atenoloL 25 MG TAB PO SCH (09:00)
[2022-08-15] MEDS ORDERED: ASPIRIN 81 MG PO SCH (09:00)
[2022-08-15] MEDS ORDERED: ATORVASTATIN 40 MG TAB PO SCH (09:00)
[2022-08-15] MEDS ORDERED: MULTIVITAMINS, THERA 1 EACH TAB PO SCH (09:00)
[2022-08-15] MEDS: TACROLIMUS 1 MG CAP PO SCH ×2 (10:37→21:59)
--- NOTE | 2022-08-15 10:59 | PN ---
PROGRESS NOTE This is a gentleman with history of CAD with previous multivessel PCI, hypertension, hyperlipidemia, obstructive sleep apnea, wears a CPAP. 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 His creatinine is usually between 2.5 to 3.0. This gentleman was admitted electively for a cardiac cath, but because of elevated creatinine and above-mentioned conditions, he was brought in early yesterday and hydrated. This morning is comfortable, resting. Vital signs stable. No JVD. S1, S2 with a short systolic murmur is audible. Lungs are clear. Abdomen and lower extremity exam unchanged. Plan is to perform cardiac cath from right radial approach. Rationale, risks, benefits, options explained. The patient understands all details and wished to proceed with the procedure, which is scheduled for 10:30 today. The patient had multivessel intervention, last one was of the circumflex coronary artery performed in [place] when he was visiting and this was performed within the last 6 to 7 months in [place]. We will also check his BMP today. MMSANGITAL / IJN: [id number] /
[2022-08-15 11:02] LABS: African American GFR (CKD) 32 (>60 ml/min/1.73 sqM); Anion Gap 5 mmol/L; Blood Urea Nitrogen 38 mg/dL (9-20); Calcium 8.6 mg/dL (8.4-10.2); Carbon Dioxide 23 mmol/L (22-30); Chloride 110 mmol/L (98-107); Glucose 112 mg/dL (74-99); Magnesium 2.4 mg/dL (1.6-2.3); Non-African American GFR(CKD) 28 (>60 ml/min/1.73 sqM); Potassium 5.9 mmol/L (3.5-5.1); Sodium 138 mmol/L (137-145)
[2022-08-15] MEDS ORDERED: IV FLUID CONTINUATION 1,000 ML IV ONE (11:05)
[2022-08-15] MEDS ORDERED: fentaNYL (PF) 50 MCG/ML 2 ML AMP IV ONE (11:12)
[2022-08-15] MEDS ORDERED: LIDOCAINE 1% INJ 10MG/ML (30 ML VIAL-PF) SQ ONE (11:12)
[2022-08-15] MEDS: MIDAZOLAM 2 MG/2 ML VIAL IV ONE ×2 (11:12→11:17)
[2022-08-15] MEDS: VERAPAMIL SYRINGE (5 MG/10 ML) INTRAARTER ONE ×2 (11:14→11:43)
[2022-08-15] MEDS ORDERED: HEPARIN SODIUM 1,000 UN/ML (10ML VL) IV ONE (11:21)
[2022-08-15] MEDS ORDERED: IOPAMIDOL-370 100ML BTL INJ ONE (11:43)
[2022-08-15] MEDS ORDERED: RX INFO: IV CONTRAST WAS GIVEN 1 EACH MISC MISCELLANE PRN (11:54)
[2022-08-15 12:23] LABS: Glucose,Whole Blood 90 mg/dL (70-110)
[2022-08-15] MEDS ORDERED: DEXTROSE 50% SYRINGE 50 ML IVP STA (16:13)
[2022-08-15] MEDS ORDERED: INSULIN REGULAR 100 UNIT/ML VIAL (IV) IV ONE (16:13)
--- NOTE | 2022-08-15 16:15 | P.NPCON ---
History of Present Illness - Reason for Consult acute renal failure, chronic renal failure - History of Present Illness Reason for consultation: Acute kidney injury on chronic kidney disease History of present illness: I sent patient is a 72-year-old male seen in renal consultation for acute kidney injury on chronic kidney disease. Patient has chronic kidney disease stage IV with baseline creatinine near 2.3. 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 Patient was treated with Rituxan initial ly and then was started on calcineurin inhibitor. He is maintained on tacrolimus 1 mg twice a day at home. Creatinine was 2.81 on admission and is 2.29 today. He is currently receiving IV fluids. Patient presented to the hospital due to pain in his jaw was started about 2 weeks ago. Patient denies any chest pain or shortness of breath. Patient does have history of coronary artery disease with 4 cardiac stents. He does a history of diabetes. Patient's potassium tends to run high and is 5.9 today. He does take lisinopril outpatient. Denies vomiting or diarrhea. Oral intake has been fair. No gross hematuria. No fever or chills. Cardiology is following and catheterization is pending. He denies use of nonsteroidals. Vital signs are stable. General: No acute distress. HEENT: Head exam is unremarkable. LUNGS: No audible rhonchi or wheezes. HEART: Rate and Rhythm are regular. ABDOMEN: Soft, nontender. EXTREMITITES: No edema. Past Medical History Past Medical History: Coronary Artery Disease (CAD), Diabetes Mellitus, Eye Disorder, Hyperlipidemia, Hypertension, Sleep Apnea/CPAP/BIPAP Additional Past Medical History / Comment(s): NIDDM type II, neuropathy bilateral feet, pancreatitis x2, FORREST-does not wear device. History of Any Multi-Drug Resistant Organisms: None Reported Past Surgical History: Heart Catheterization With Stent, Tonsillectomy Additional Past Surgical History / Comment(s): PCI with stent in LAD/RCA, cardiac angioplasty in , bilateral laser eye surgery for glaucoma, colonoscopy Past Anesthesia/Blood Transfusion Reactions: No Reported Reaction Date of Last Stent Placement:: 01/24/16 Past Psychological History: No Psychological Hx Reported Additional Psychological History / Comment(s): Pt resides alone, his shabbir and her family live next door. Pt is independent. Smoking Status: Former smoker Past Alcohol Use History: Occasional Additional Past Alcohol Use History / Comment(s): Pt started smoking in 1966 and quit in 1982 Past Drug Use History: None Reported - Past Family History Father Family Medical History: Cancer Additional Family Medical History / Comment(s): LEUKEMIA Mother Family Medical History: Diabetes Mellitus Medications and Allergies Home Medications Medication Instructions Recorded Confirmed Type Brimonidine Tartrate/Timolol 1 drop BOTH EYES BID 12/23/15 08/14/22 History [Combigan 0.2%-0.5% Eye Drops] Clopidogrel [Plavix] 75 mg PO DAILY #90 tab 01/19/16 08/14/22 Rx Aspirin EC [Ecotrin Low Dose] 81 mg PO DAILY 12/19/19 08/14/22 History Cetirizine HCl [Zyrtec] 10 mg PO DAILY 12/19/19 08/14/22 History Latanoprost/Pf [Latanoprost 0.005% 1 drop BOTH EYES HS 12/19/19 08/14/22 History Eye Drop] Dapagliflozin Propanediol [Farxiga] 5 mg PO DAILY 08/14/22 08/14/22 History Empagliflozin [Jardiance] 10 mg PO DAILY 08/14/22 08/14/22 History Ergocalciferol (Vitamin D2) 1,250 mcg PO SUMOTUWE 08/14/22 08/14/22 History [Drisdol (50,000 Iu)] Ezetimibe [Zetia] 10 mg PO DAILY 08/14/22 08/14/22 History Furosemide [Lasix] 40 mg PO DAILY 08/14/22 08/14/22 History Insulin Glargine,Hum.rec.anlog 10 units SQ DAILY 08/14/22 08/14/22 History [Toujeo Solostar] Rosuvastatin [Crestor] 20 mg PO DAILY 08/14/22 08/14/22 History Spironolactone [Aldactone] 25 mg PO DAILY 08/14/22 08/14/22 History Tacrolimus [Prograf] 1 mg PO DAILY 08/14/22 08/14/22 History Tacrolimus [Prograf] 1.5 mg PO HS 08/14/22 08/14/22 History amLODIPine [Norvasc] 5 mg PO BID 08/14/22 08/14/22 History atenoloL [Tenormin] 25 mg PO BID 08/14/22 08/14/22 History lisinopriL [Prinivil] 20 mg PO HS 08/14/22 08/14/22 History sitaGLIPtin [Januvia] 100 mg PO DAILY 08/14/22 08/14/22 History Isosorbide Mononitrate ER [Imdur] 30 mg PO DAILY #90 tab 08/15/22 Rx Allergies Allergy/AdvReac Type Severity Reaction Status Date / Time No Known Allergies Allergy Verified 08/14/22 18:09 Physical Exam Vitals: Vital Signs Temp Pulse Resp BP BP Pulse Ox 08/15/22 15:39 48 L 16 121/61 97 08/15/22 14:33 44 L 16 108/52 96 08/15/22 13:39 43 L 16 134/69 97 08/15/22 13:09 45 L 16 156/74 95 08/15/22 12:39 44 L 16 109/61 97 08/15/22 12:09 98.0 F 44 L 16 130/74 95 08/15/22 11:54 43 L 16 126/69 96 08/15/22 08:15 54 L 08/15/22 08:04 16 08/15/22 07:30 97.8 F 45 L 16 130/72 97 08/15/22 02:38 98.2 F 74 16 133/77 95 08/14/22 20:00 97.5 F L 50 L 18 141/75 95 08/14/22 17:30 98.0 F 48 L 18 133/68 96 Intake and Output 08/15/22 08/15/22 08/15/22 06:59 14:59 22:59 Intake Total 400 Balance 400 Intake: IV 200 Oral 200 Other: Voiding Method Toilet # Voids 2 Results - Lab Results Most recent lab results Calcium 8.6 mg/dL (8.4-10.2) 08/15/22 10:19 Magnesium 2.4 mg/dL (1.6-2.3) H 08/15/22 10:19 08/14/22 17:37 08/15/22 10:19 Assessment and Plan Plan: Assessment: 1. Acute kidney injury mostly prerenal improved with IV hydration. Creatinine 2.81 on admission and is 2.29 today. 2. Chronic kidney disease stage IV secondary to biopsy-proven membranous nephropathy. Baseline creatinine near 2.3. 3. Coronary disease status post cardiac stenting. 4. Chronic hyperkalemia secondary to chronic kidney disease as well as tacrol imus, lisinopril. 5. Diabetes mellitus. Plan: Resume tacrolimus 1 mg twice daily. Check Prograf level. Hold lisinopril due to hyperkalemia. Maintain IV fluids. Risk of worsening renal function, potentially requiring renal replacement therapy, post-IV contrast exposure discussed with patient. Hold Farxiga for now a well. Continue to monitor renal function and urine output. Add Lokelma bid. 10 units IV regular insulin with an amp of D50 now. Repeat potassium level at 8 PM tonight. Thank you for the consultation. I will continue to follow the patient with you during his hospital stay.
--- NOTE | 2022-08-15 17:33 | CC ---
CARDIAC CATHETERIZATION REPORT DATE OF SERVICE: 08/15/2022. PROCEDURES PERFORMED: Left heart catheterization and coronary angiography. PERFORMED BY: Dr. Lázaro Lamas. Moderate conscious sedation time was 37 minutes. The patient was administered Versed and fentanyl. Oxygen saturations, hemodynamics, and EKG were monitored closely. CLINICAL INFORMATION: Mr. Jose Gonzalez is a 72-year-old gentleman with a history of CAD with multivessel PCI, hypertension, hyperlipidemia, and also membranous nephropathy with chronic kidney disease and creatinine in the range of 2.5 to 3.0. This gentleman underwent stenting of LAD and RCA performed by me in 2015. RCA had multiple stents. LAD had orbital atherectomy and multiple stents. At that time, circumflex had moderate disease. He did well until 2021 when he was in [place]. He ended up going in for an unstable angina and had a stenting of circumflex with orbital atherectomy. At that time, RCA had moderate disease and LAD was good. He has been having increasing anginal symptoms even with mild activity; and therefore, I recommended cardiac catheterization after due discussion regarding risks, benefits, and options. PROCEDURE NOTE: Under local anesthesia and strict aseptic precautions, a 6-Palauan introducer was placed in the right radial artery. Using JL3.5 and JR4 catheters, I performed coronary angiography, and a pigtail catheter was used to check LV pressures. I then had additional injections of the right coronary with an Amplatz 1 left diagnostic catheter. The sheath was taken out. TR band was applied as per protocol with saturation in the fingers of the right hand of 94%. The patient tolerated the procedure well without complication. Results were discussed with the patient as well as his daughter. CARDIAC CATHETERIZATION FINDINGS: The left ventricular end-diastolic pressure was 10 to 11 mmHg with no gradient across aortic valve on pullback with a pigtail catheter. CORONARY ANGIOGRAPHY FINDINGS: RIGHT CORONARY ARTERY: This is a dominant vessel that was stented in the proximal, mid, and distal portions, and PDA was dilated in 2015. The vessel now has an 80% ostial lesion with damping on cannulation, 40% to 50% lesion in the midportion, and PDA has an 80% lesion, but PDA is relatively smaller vessel. There is diffuse and [id number] calcification throughout the coronary artery including the ostium. LEFT MAIN CORONARY ARTERY: Short, patent, disease-free vessel that is calcified, bifurcates into LAD and circumflex. LEFT ANTERIOR DESCENDING CORONARY ARTERY: Good-caliber vessel, gives off a septal and diagonal branch proximally and a large diagonal branch in the midportion. Entire LAD has minor irregularities. Stented segment is patent. There is about a 35% to 40% narrowing with excellent flow. LEFT POSTERIOR CIRCUMFLEX CORONARY ARTERY: Nondominant vessel that has rotablator and stenting, widely patent. Obtuse marginal has about a 35% narrowing. Circumflex has 30% to 35% narrowing. No other significant disease. FINAL IMPRESSION: This patient has normal filling pressures, no gradient. Right-dominant system with ostial right coronary artery of 80% heavily calcified, mid right coronary artery of about 40% to 50%, and posterior descending artery of 80%. Left main, left anterior descending, and circumflex are free of significant disease. About a 35% circumflex and a 35% to 40% left anterior descending disease is noted. RECOMMENDATIONS: Findings were discussed with the patient and daughter. I will perform elective PCI of RCA. For now, we will pursue medical therapy. I will add Imdur 30 mg daily. See me in the office on August 17, at 02:15 p.m. Discharge instructions were given. The patient will be sent home today. MMODL / IJN: [id number] /
--- NOTE | 2022-08-15 18:09 | DS ---
DISCHARGE SUMMARY DIAGNOSES: 1. Unstable angina. 2. Chronic kidney disease. 3. Hypertension. 4. Hyperlipidemia. PROCEDURES PERFORMED: Left heart catheterization and coronary angiography. HOSPITAL COURSE: The patient was admitted early because of his chronic kidney disease, creatinine of 2.8. He was hydrated, and only 60 mL of contrast was given during the cardiac catheterization from right radial approach. The patient tolerated the procedure well. Findings were discussed. He will have elective PCI of RCA ostium and midportion and also PDA branch, and this will be addressed in a week or so after re-evaluating his kidney function. He will be discharged later this evening after adequate hydration. Discharge instructions regarding activity, diet, and medications were given. He will continue the same home medications plus Imdur 30 mg daily. MMODL / VINODN: [id number] /
[2022-08-15] MEDS ORDERED: SODIUM ZIRCONIUM CYCLOSILICATE 10 GM PACKET PO ONE (18:13)
[2022-08-15] MEDS ORDERED: SODIUM ZIRCONIUM CYCLOSILICATE 10 GM PACKET PO SCH (21:00)
[2022-08-15] MEDS ORDERED: LATANOPROST 0.005% OPHTH DROPS 2.5 ML BTL BOTH EYES SCH (21:00)
[2022-08-15 22:31] VITALS: BP 150/74; PULSE 52; RESP 17; TEMP 97.9
[2022-08-16] MEDS ORDERED: ISOSORBIDE MONONITRATE ER 15 MG TAB PO SCH (09:00)
== END 2022-08-15 23:10 | disposition home or self-care (01) ==
LOC: 6NMEDSUR 17:10
PROVIDERS: ADMIT Internal Medicine Interventional Cardiology; ATTEND Internal Medicine Interventional Cardiology
DX: I25.110 Atherosclerotic heart disease of native coronary artery with unstable angina pectoris (principal); I25.84 Coronary atherosclerosis due to calcified coronary lesion; I12.9 Hypertensive chronic kidney disease with stage 1 through stage 4 chronic kidney disease, or unspecified chronic kidney disease; E11.22 Type 2 diabetes mellitus with diabetic chronic kidney disease; N18.9 Chronic kidney disease, unspecified; E78.00 Pure hypercholesterolemia, unspecified; Z95.5 Presence of coronary angioplasty implant and graft; E78.5 Hyperlipidemia, unspecified; G47.33 Obstructive sleep apnea (adult) (pediatric); Z79.84 Long term (current) use of oral hypoglycemic drugs; Z79.82 Long term (current) use of aspirin; Z79.4 Long term (current) use of insulin; Z79.51 Long term (current) use of inhaled steroids; Z79.899 Other long term (current) drug therapy
CPT/HCPCS: 93458; 80048 ×2; 83735; 84132; 85025; G0379; G0378 ×2; C1769 ×2; C1894; J2250; J2001; J7507; J3010; J1644; Q9967

== ENCOUNTER → 2022-08-19 | Outpatient (CLI) | payer MEDICARE ==
[2022-08-19 23:01] LABS: African American GFR (CKD) 35.6 (60.0-200.0); Anion Gap 9.8 mmol/L (10.00-18.00); BUN/Creat Ratio 18.71 Ratio (12.00-20.00); Blood Urea Nitrogen 39.3 mg/dL (9.0-27.0); Calcium 9.3 mg/dL (8.7-10.3); Carbon Dioxide 24.2 mmol/L (20.0-27.5); Magnesium 2.6 mg/dL (1.5-2.4); Non-African American GFR(CKD) 30.7 (60.0-200.0); Potassium 5.2 mmol/L (3.5-5.5)
== END | disposition home or self-care (01) ==
LOC: LABWHC1 09:31
PROVIDERS: ATTEND Internal Medicine Interventional Cardiology
DX: N18.4 Chronic kidney disease, stage 4 (severe) (principal); N02.2 Recurrent and persistent hematuria with diffuse membranous glomerulonephritis
CPT/HCPCS: 36415; 80048; 80197; 83735

== ENCOUNTER 2022-08-21 16:55 | Inpatient (IN) | payer MEDICARE ==
[2022-08-21 17:20] LABS: Glucose,Whole Blood 115 mg/dL (70-110)
[2022-08-21] MEDS ORDERED: ALPRAZolam 0.5 MG TAB PO PRN (18:25)
[2022-08-21] MEDS ORDERED: NITROGLYCERIN SL TABS 0.4 MG TAB SUBLINGUAL PRN (18:25)
[2022-08-21] MEDS: SODIUM CHLORIDE 0.9% 1,000 ML in EMPTY BAG 1 BAG IV SCH (18:34)
[2022-08-21 19:00] LABS: Calcium 8.7 mg/dL (8.4-10.2); Potassium 5.1 mmol/L (3.5-5.1)
[2022-08-21 19:06] LABS: Prothrombin Time 10.5 sec (9.0-12.0)
[2022-08-21 19:25] LABS: Basophils # (A) 0.1 k/uL (0-0.2); Basophils % (A) 1 %; Eosinophils # (A) 0.2 k/uL (0-0.7); Eosinophils % (A) 2 %; HCT 39.1 % (39.0-53.0); HGB 13.1 gm/dL (13.0-17.5); Lymphocytes # (A) 2.3 k/uL (1.0-4.8); Lymphocytes % (A) 24 %; MCH 29.1 pg (25.0-35.0); MCHC 33.5 g/dL (31.0-37.0); MCV 86.7 fL (80.0-100.0); Mean Platelet Volume 8.7; Monocytes # (A) 0.9 k/uL (0-1.0); Monocytes % (A) 10 %; Neutrophils # (A) 5.6 k/uL (1.3-7.7); Neutrophils % (A) 60 %; Platelet Count 194 k/uL (150-450); RBC 4.51 m/uL (4.30-5.90); RDW 13.7 % (11.5-15.5); WBC 9.4 k/uL (3.8-10.6)
[2022-08-21] MEDS: ISOSORBIDE MONONITRATE ER 30 MG TAB.ER.24H PO SCH (20:09)
[2022-08-21] MEDS: EZETIMIBE 10 MG TAB PO SCH (20:09)
[2022-08-21] MEDS: CLOPIDOGREL 75 MG TAB PO SCH (20:10)
[2022-08-21] MEDS: atenoloL 25 MG TAB PO SCH (20:10)
[2022-08-21] MEDS: TACROLIMUS 1 MG CAP PO SCH (20:10)
[2022-08-21] MEDS: TIMOLOL 0.5% OPHTH DROPS 5 ML BTL BOTH EYES SCH (20:10)
[2022-08-21] MEDS: ATORVASTATIN 40 MG TAB PO SCH (20:10)
[2022-08-21] MEDS: LATANOPROST 0.005% OPHTH DROPS 2.5 ML BTL BOTH EYES SCH (20:10)
[2022-08-21] MEDS: BRIMONIDINE TARTRATE 0.2% DROPS 5 ML BTL BOTH EYES SCH (20:10)
[2022-08-21 20:46] LABS: Glucose,Whole Blood 158 mg/dL (70-110)
[2022-08-21] MEDS ORDERED: lisinopriL 20 MG TAB PO SCH (21:00)
[2022-08-22 06:16] LABS: Glucose,Whole Blood 102 mg/dL (70-110)
[2022-08-22] MEDS: amLODIPine 5 MG TAB PO SCH (06:23)
[2022-08-22] MEDS: MULTIVITAMINS, THERA 1 EACH TAB PO SCH (06:23)
[2022-08-22] MEDS: LORATADINE 10 MG TAB PO SCH (06:23)
[2022-08-22] MEDS: ASPIRIN 81 MG PO SCH (06:24)
[2022-08-22] MEDS: TIMOLOL 0.5% OPHTH DROPS 5 ML BTL BOTH EYES SCH ×2 (06:24→21:00)
[2022-08-22] MEDS: TACROLIMUS 1 MG CAP PO SCH ×2 (06:26→20:59)
[2022-08-22] MEDS: BRIMONIDINE TARTRATE 0.2% DROPS 5 ML BTL BOTH EYES SCH ×3 (06:27→21:02)
[2022-08-22] MEDS: ERGOCALCIFEROL 1,250 MCG (50,000 IU) CAPSULE PO SCH (06:29)
[2022-08-22] MEDS: SODIUM CHLORIDE 0.9% 1,000 ML in EMPTY BAG 1 BAG IV SCH (06:32)
[2022-08-22 07:17] LABS: Calcium 8.3 mg/dL (8.4-10.2); Potassium 4.9 mmol/L (3.5-5.1)
[2022-08-22] MEDS: atenoloL 25 MG TAB PO SCH (07:32)
[2022-08-22] MEDS ORDERED: LIDOCAINE 1% INJ 10MG/ML (20 ML MDV) ONE (10:10)
[2022-08-22] MEDS ORDERED: ASPIRIN 81 MG ONE (10:51)
[2022-08-22] MEDS ORDERED: ASPIRIN 81 MG PO ONE (10:52)
[2022-08-22] MEDS ORDERED: IV FLUID CONTINUATION 950 ML IV ONE (10:53)
[2022-08-22] MEDS ORDERED: MIDAZOLAM 2 MG/2 ML VIAL IV ONE ×2 (11:21→11:27)
[2022-08-22] MEDS ORDERED: fentaNYL (PF) 50 MCG/ML 2 ML AMP ONE (11:25)
[2022-08-22] MEDS ORDERED: fentaNYL (PF) 50 MCG/ML 2 ML AMP IV ONE (11:27)
[2022-08-22] MEDS ORDERED: HEPARIN SODIUM 1,000 UN/ML (10ML VL) IV ONE ×3 (11:40→12:34)
[2022-08-22] MEDS ORDERED: HYDROmorphone 0.5 MG/0.5 ML SYRINGE IVP ONE (12:25)
[2022-08-22] MEDS ORDERED: IOPAMIDOL-370 100ML BTL INJ ONE ×2 (12:28→12:44)
[2022-08-22] MEDS ORDERED: NITROGLYCERIN 1000MCG/10ML SYRINGE INTRACORON ONE (12:30)
[2022-08-22] MEDS ORDERED: niCARdipine Syringe (1,000 mcg/10 mL) INTRACORON ONE (12:33)
[2022-08-22] MEDS ORDERED: CLOPIDOGREL 75 MG TAB ONE (12:48)
[2022-08-22] MEDS ORDERED: CLOPIDOGREL 75 MG TAB PO ONE (12:51)
[2022-08-22] MEDS ORDERED: ATROPINE SULFATE 0.1 MG/ML 10ML SYRINGE IV PRN (12:54)
[2022-08-22] MEDS ORDERED: MAG HYDROX/AL HYDROX/SIMETH 30 ML CUP PO PRN (12:54)
[2022-08-22] MEDS ORDERED: RX INFO: IV CONTRAST WAS GIVEN 1 EACH MISC MISCELLANE PRN (12:54)
[2022-08-22] MEDS ORDERED: NITROGLYCERIN SL TABS 0.4 MG TAB SUBLINGUAL PRN (12:54)
[2022-08-22] MEDS ORDERED: ZOLPIDEM 5 MG TAB PO PRN (12:54)
[2022-08-22 13:27] LABS: Glucose,Whole Blood 116 mg/dL (70-110)
[2022-08-22] MEDS: SODIUM CHLORIDE 0.9% 1,000 ML IV SCH (13:30)
[2022-08-22 14:15] VITALS: BMI 27.2
[2022-08-22 16:30] LABS: Glucose,Whole Blood 196 mg/dL (70-110)
[2022-08-22 20:34] LABS: Glucose,Whole Blood 137 mg/dL (70-110)
[2022-08-22] MEDS: CLOPIDOGREL 75 MG TAB PO SCH (20:59)
[2022-08-22] MEDS: ATORVASTATIN 40 MG TAB PO SCH (20:59)
[2022-08-22] MEDS: EZETIMIBE 10 MG TAB PO SCH (20:59)
[2022-08-22] MEDS ORDERED: lisinopriL 10 MG TAB PO SCH (21:00)
[2022-08-22] MEDS: ISOSORBIDE MONONITRATE ER 30 MG TAB.ER.24H PO SCH (21:00)
[2022-08-22] MEDS: LATANOPROST 0.005% OPHTH DROPS 2.5 ML BTL BOTH EYES SCH (21:01)
--- NOTE | 2022-08-22 21:26 | PTCA ---
PERCUTANEOUSTRANS CORORONARY ANGIOGRAPHY DATE OF SERVICE: 08/22/2022. PROCEDURES PERFORMED: 1. Transvenous temporary pacemaker from right femoral venous approach. 2. Orbital atherectomy of proximal and ostial dominant right coronary artery. 3. Percutaneous transluminal coronary angioplasty and stenting with a drug-eluting stent of proximal/ostial right coronary artery. PERFORMED BY: Dr. Lázaro Lamas. Moderate conscious sedation time was 75 minutes. The patient was administered Versed. Oxygen saturation, hemodynamics, and EKG were monitored closely. CLINICAL INFORMATION: Mr. Jose Gonzalez is a 72-year-old gentleman with a known history of CAD and previous PCI of LAD, circumflex, and RCA. I performed a cardiac catheterization last week and noted that he had a significant ostial lesion, was heavily calcified, was brought in for elective PCI with orbital atherectomy. The patient has diabetes, hypertension, hyperlipidemia, CAD - triple-vessel disease, and also membranous nephropathy with chronic kidney disease and creatinine in the range of 2.5 to 3.0. His creatinine was 2.86. He was brought in yesterday and hydrated. This morning, it is 2.2. PROCEDURE NOTE: Under local anesthesia and strict aseptic precautions, a 6-Afghan introducer was placed in the right femoral vein and another 7-Afghan introducer in the right femoral artery. Using a balloon-tipped transvenous pacemaker, the tip was advanced and positioned in the right ventricular apex, and pacemaker thresholds were obtained. Pacemaker was kept on a standby rate of 35 and mA of 5.0. I then proceeded with PCI of RCA. Initially, I tried a standard 7-Afghan Hai-type guide catheter but could not get good seating into the right coronary artery. I used AL 0.75 guide catheter of 7-Afghan caliber. With this, I was able to cannulate the right coronary artery. A Runthrough wire was used to cross the lesion. This was a long Runthrough wire. The patient received a total of 7000 units of heparin. ACT was about 253. I advanced and positioned the Runthrough wire distally in the PLV branch. Using a teleport exchange catheter, I exchanged this to a Nitinol atherectomy wire. Orbital atherectomy was then performed using Dynaglide, and I did the cutting from distal to proximal 3 cuts and the next cut was from proximal to distal. Significant improvement was noted. I then exchanged the orbital atherectomy wire for a Runthrough wire using the same teleport catheter. I used a 2.5-caliber 15-mm NC Trek balloon and postdilated the ostium and proximal portion of RCA at 14 atmospheres. I then deployed a 3.5-caliber 15-mm long Xience stent at 14 atmospheres. Excellent angiographic result was achieved. Mid RCA lesion, which was heavily calcified, also opened up with good flow. Distally, the PLV has a distal lesion of 70%, and PDA has ostial lesion of 60%, but the flow has improved remarkably. The patient received 300 mg of Plavix. The sheath was taken out, and Angio-Seal device was used to secure hemostasis. Venous sheath was taken out, and manual compression was used. Excellent angiographic result without complication was achieved. Findings were discussed with the patient as well as his daughter, and I expect he will be discharged tomorrow if he remains stable. He will be hydrated, and we will check the renal function as well. MMODL / IJN: [id number] /
[2022-08-23] MEDS: SODIUM CHLORIDE 0.9% 1,000 ML IV SCH (01:28)
[2022-08-23] MEDS ORDERED: SODIUM CHLORIDE 0.9% 1,000 ML IV SCH (01:30)
[2022-08-23 06:06] LABS: Glucose,Whole Blood 134 mg/dL (70-110)
[2022-08-23 08:36] VITALS: BP 124/70; PULSE 60; RESP 18; TEMP 97.5
[2022-08-23] MEDS: TACROLIMUS 1 MG CAP PO SCH (08:37)
[2022-08-23] MEDS: LORATADINE 10 MG TAB PO SCH (08:37)
[2022-08-23] MEDS: BRIMONIDINE TARTRATE 0.2% DROPS 5 ML BTL BOTH EYES SCH (08:37)
[2022-08-23] MEDS: TIMOLOL 0.5% OPHTH DROPS 5 ML BTL BOTH EYES SCH (08:38)
[2022-08-23] MEDS: ASPIRIN 81 MG PO SCH (08:38)
[2022-08-23] MEDS: amLODIPine 5 MG TAB PO SCH (08:38)
[2022-08-23] MEDS: MULTIVITAMINS, THERA 1 EACH TAB PO SCH (08:38)
[2022-08-23] MEDS: ERGOCALCIFEROL 1,250 MCG (50,000 IU) CAPSULE PO SCH (08:38)
[2022-08-23 10:07] LABS: Basophils % (A) 0 %; Eosinophils # (A) 0.4 k/uL (0-0.7); Eosinophils % (A) 4 %; HCT 39.6 % (39.0-53.0); HGB 12.9 gm/dL (13.0-17.5); Lymphocytes # (A) 1.5 k/uL (1.0-4.8); Lymphocytes % (A) 16 %; MCH 28.4 pg (25.0-35.0); MCHC 32.6 g/dL (31.0-37.0); MCV 87.2 fL (80.0-100.0); Mean Platelet Volume 8.5; Monocytes # (A) 0.9 k/uL (0-1.0); Monocytes % (A) 9 %; Neutrophils # (A) 6.5 k/uL (1.3-7.7); Neutrophils % (A) 69 %; Platelet Count 196 k/uL (150-450); RBC 4.55 m/uL (4.30-5.90); RDW 13.9 % (11.5-15.5); WBC 9.4 k/uL (3.8-10.6)
[2022-08-23 10:24] LABS: Calcium 8.6 mg/dL (8.4-10.2); Potassium 4.9 mmol/L (3.5-5.1)
--- NOTE | 2022-08-24 15:16 | P.DS ---
Providers Date of admission: 08/21/22 16:55 Expected date of discharge: 08/23/22 Attending physician: Armando Lamas Consults: 08/22/22 12:54 Consult Physician Routine Consulting Provider: [facility] Consult Reason/Comments: Post Interventional Patient Do you want consulting provider notified?: Already Contacted Primary care physician: Shilpa Bazan [place] Hospital Course: This is a 72-year-old male patient of Dr. NICCI Lamas'tamera who underwent cardiac catheterization right radial approach on August 15 found to have significant narrowing of the ostium of the RCA with heavy calcification. LAD and circumflex were patent. LAD had orbital atherectomy and stenting in 2015 in February 2022 he had Rotablator and stenting of the circumflex. Patient has heavily calcified coronary arteries. Patient was brought back into the hospital for elective PCI of the RCA. Yesterday, patient underwent transvenous temporary pacemaker from the right femoral venous approach. Orbital atherectomy of the proximal and ostial dominant right coronary artery. Percutaneous transluminal coronary angioplasty and stenting with a drug-eluting stent of the proximal ostial right coronary artery. Patient hasn't had no postprocedure complications. He has been advised to discontinue atenolol, change lisinopril to bedtime. Patient will follow-up in the office in one week. Patient Condition at Discharge: Good Plan - Discharge Summary Discharge Rx Participant: No New Discharge Prescriptions: Continue Brimonidine Tartrate/Timolol [Combigan 0.2%-0.5% Eye Drops] 1 drop BOTH EYES BID Latanoprost/Pf [Latanoprost 0.005% Eye Drop] 1 drop BOTH EYES HS Aspirin EC [Ecotrin Low Dose] 81 mg PO DAILY Cetirizine HCl [Zyrtec] 10 mg PO DAILY Rosuvastatin [Crestor] 20 mg PO HS Ezetimibe [Zetia] 10 mg PO HS Ergocalciferol (Vitamin D2) [Drisdol (50,000 Iu)] 1,250 mcg PO SUMOTUWE Multivitamins, Thera [Multivitamin (formulary)] 1 tab PO DAILY Clopidogrel [Plavix] 75 mg PO HS Isosorbide Mononitrate ER [Imdur] 30 mg PO HS Furosemide [Lasix] 40 mg PO Q48H amLODIPine [Norvasc] 5 mg PO DAILY sitaGLIPtin [Januvia] 100 mg PO DAILY Dapagliflozin Propanediol [Farxiga] 5 mg PO DAILY Tacrolimus [Prograf] 1 mg PO BID Insulin Glargine,Hum.rec.anlog [Toujeo Solostar] 10 units SQ DAILY Changed lisinopriL [Prinivil] 10 mg PO HS #0 Spironolactone [Aldactone] 25 mg PO DAILY #0 Discontinued atenoloL [Tenormin] 25 mg PO BID Discharge Medication List Brimonidine Tartrate/Timolol [Combigan 0.2%-0.5% Eye Drops] 1 drop BOTH EYES BID 12/23/15 [History] Aspirin EC [Ecotrin Low Dose] 81 mg PO DAILY 12/19/19 [History] Cetirizine HCl [Zyrtec] 10 mg PO DAILY 12/19/19 [History] Latanoprost/Pf [Latanoprost 0.005% Eye Drop] 1 drop BOTH EYES HS 12/19/19 [History] Dapagliflozin Propanediol [Farxiga] 5 mg PO DAILY 08/14/22 [History] Ergocalciferol (Vitamin D2) [Drisdol (50,000 Iu)] 1,250 mcg PO SUMOTUWE 08/14/22 [History] Ezetimibe [Zetia] 10 mg PO HS 08/14/22 [History] Furosemide [Lasix] 40 mg PO Q48H 08/14/22 [History] Insulin Glargine,Hum.rec.anlog [Toujeo Solostar] 10 units SQ DAILY 08/14/22 [History] Rosuvastatin [Crestor] 20 mg PO HS 08/14/22 [History] Tacrolimus [Prograf] 1 mg PO BID 08/14/22 [History] amLODIPine [Norvasc] 5 mg PO DAILY 08/14/22 [History] sitaGLIPtin [Januvia] 100 mg PO DAILY 08/14/22 [History] Clopidogrel [Plavix] 75 mg PO HS 08/21/22 [History] Isosorbide Mononitrate ER [Imdur] 30 mg PO HS 08/21/22 [History] Multivitamins, Thera [Multivitamin (formulary)] 1 tab PO DAILY 08/21/22 [History] Spironolactone [Aldactone] 25 mg PO DAILY #0 08/23/22 [Rx] lisinopriL [Prinivil] 10 mg PO HS #0 08/23/22 [Rx] Follow up Appointment(s)/Referral(s): Armando Lamas MD [STAFF PHYSICIAN] - 1 Week (Call office for appointment 2:30 tomorrow.) Patient Instructions/Handouts: Heart Catheterization (DC) Discharge Disposition: HOME SELF-CARE
== END 2022-08-23 11:03 | disposition home or self-care (01) | DRG 247 ==
LOC: 3SCARD 16:55
PROVIDERS: ADMIT Internal Medicine Interventional Cardiology; ATTEND Internal Medicine Interventional Cardiology
PROC: 02C03Z7 Extirpation of Matter from Coronary Artery, One Artery, Orbital Atherectomy Technique, Percutaneous Approach (ICD-10-PCS; 2022-08-22)
PROC: 5A1223Z Performance of Cardiac Pacing, Continuous (ICD-10-PCS; 2022-08-22)
PROC: 02HK3JZ Insertion of Pacemaker Lead into Right Ventricle, Percutaneous Approach (ICD-10-PCS; 2022-08-22)
PROC: 027034Z Dilation of Coronary Artery, One Artery with Drug-eluting Intraluminal Device, Percutaneous Approach (ICD-10-PCS; principal; 2022-08-22 10:30)
DX: I25.110 Atherosclerotic heart disease of native coronary artery with unstable angina pectoris (principal); E11.22 Type 2 diabetes mellitus with diabetic chronic kidney disease; I12.9 Hypertensive chronic kidney disease with stage 1 through stage 4 chronic kidney disease, or unspecified chronic kidney disease; N18.9 Chronic kidney disease, unspecified; E78.00 Pure hypercholesterolemia, unspecified; G47.33 Obstructive sleep apnea (adult) (pediatric); Z98.61 Coronary angioplasty status; Z87.891 Personal history of nicotine dependence; Z28.310 Unvaccinated for COVID-19; Z79.82 Long term (current) use of aspirin; Z79.51 Long term (current) use of inhaled steroids; Z79.84 Long term (current) use of oral hypoglycemic drugs; Z79.02 Long term (current) use of antithrombotics/antiplatelets; Z79.4 Long term (current) use of insulin
CPT/HCPCS: 80048; 85025; 85610

== ENCOUNTER → 2022-09-27 | Outpatient (CLI) | payer MEDICARE ==
--- NOTE | 2022-09-27 14:39 | P.PN ---
Subjective DATE: 09/27/2022 FOLLOW UP VISIT. Patient with obstructive sleep apnea hypopnea syndrome return to sleep center for follow-up visit. Information from previous visit have been reviewed. Patient is using PAP equipment every night for the whole night, getting PAP supplies in time. The patient does not have significant problems with the mask, PAP unit and humidification. Floyd sleepiness scale is 2, which is normal. I checked information from PAP unit. PAP unit pressure 5-8, average 7.6 cm H2O. Usage is 100 % for more then 4 hours, average 5.7 hours per night. Leak is 13 l/m, which is in acceptable range. Apnea Hypopnea Index is 0.4, which is normal. MEDICATIONS:1. Amlodipine 5 mg twice a day 2. Furosemide 40 mg once a day 3. Ezetimibe 10 mg once a day 4. Januvia 100 mg once a day 5. Farxiga 5 mg once a day 6. Rosuvastatin 20 mg once a day 7. Tacrolimus 0.5 mg twice a day During physical exam: GENERAL: A pleasant patient without any distress. VITAL SIGNS: BP 172/90, HR 65, RR 18 , weight 190.6, temperature 97.8, oxygen saturation at room air 97 % . HEENT: PERRLA, EOMI.low position of soft palate, Mallapati 4 . NECK: Supple. No JVD. LUNGS: Clear to percussion and to auscultation. Good air exchange. No wheezing or rhonchi. HEART: S1, S2 regular. ABDOMEN: Soft and nontender.[] EXTREMITIES: No clubbing or cyanosis. 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 No focal deficit. Impressions: 1. Obstructive sleep apnea-hypopnea syndrome. Patient demonstrated great compliance with treatment, benefiting from treatment. 2. Hypertension. 3. Coronary artery disease status post stent insertion. 4. History of stroke about 2 years ago without residual deficit. 5. Asthma. 6. Hyperlipidemia. 7. Diabetes mellitus. 8. ALLERGIES. 9. Increased eye pressure. Plan: 1. Continue using PAP equipment every night for the whole night. 2. To change air filter at least 1-2 times per month. 3. PAP unit should stay lower then position of the head. 4. Advised patient to remove all remaining water from humidifier canister daily and make it dry after each usage. Refill canister with fresh distilled water before each usage. 5. Sleep hygiene with regular time in bed for at least 8 hours. 6. Precautions related to driving. No driving if feel any sleepiness. 7. I will maintain prescription for PAP supplies including mask, tube, filters. 8. Follow up visit in 6 months or earlier if patient has any problems. 9. Watching weight. Thank you very much for allowing me to participate in the management of your patient. Mike Angulo MD, PhD, FAASM. Diplomat of [place], Sleep Medicine Board by [employer] Sewing Supervisor of [facility] [place]
== END ==
LOC: SLEEP 13:09
PROVIDERS: ATTEND Internal Medicine
DX: G47.33 Obstructive sleep apnea (adult) (pediatric) (principal); I10 Essential (primary) hypertension; Z99.89 Dependence on other enabling machines and devices; J45.909 Unspecified asthma, uncomplicated; I25.10 Atherosclerotic heart disease of native coronary artery without angina pectoris; E78.5 Hyperlipidemia, unspecified; E11.9 Type 2 diabetes mellitus without complications; Z98.890 Other specified postprocedural states; Z86.73 Personal history of transient ischemic attack (TIA), and cerebral infarction without residual deficits; Z79.51 Long term (current) use of inhaled steroids; Z87.891 Personal history of nicotine dependence
CPT/HCPCS: 99212

== ENCOUNTER → 2022-10-25 | Outpatient (CLI) | payer MEDICARE ==
[2022-10-25 20:58] LABS: Blood Urea Nitrogen 41.2 mg/dL (9.0-27.0); Carbon Dioxide 21.3 mmol/L (21.6-31.8); Chloride 101 mmol/L (96-109); Potassium 4.6 mmol/L (3.5-5.5); Sodium 138 mmol/L (135-145)
[2022-10-26 00:22] LABS: HCT 48.5 % (39.6-50.0); MCH 26.8 pg (27.0-32.0); MCHC 30.9 d/dL (32.0-37.0); MCV 86.6 FL (80.0-97.0); Mean Platelet Volume 11.6 FL (9.5-12.2); NRBC Per 100 WBC 0 X 10*3/uL (0.00-0.01); Platelet Count 234 X 10*3/uL (140-440); RDW 13.2 % (11.5-14.5); WBC 9.83 X 10*3/uL (4.50-10.00)
== END | disposition home or self-care (01) ==
LOC: LABPAT 14:23
PROVIDERS: ATTEND Internal Medicine Interventional Cardiology
DX: Z01.812 Encounter for preprocedural laboratory examination (principal); I25.2 Old myocardial infarction; I20.9 Angina pectoris, unspecified
CPT/HCPCS: 36415; 80051; 82565; 84520; 85027

== ENCOUNTER 2022-10-29 14:31 | Observation (INO) | payer MEDICARE ==
[2022-10-29] MEDS ORDERED: NITROGLYCERIN SL TABS 0.4 MG TAB SUBLINGUAL PRN (19:29)
[2022-10-29] MEDS ORDERED: ATORVASTATIN 80 MG TAB PO STA (19:29)
[2022-10-29] MEDS ORDERED: ALPRAZolam 0.5 MG TAB PO PRN (19:29)
[2022-10-29] MEDS ORDERED: ALPRAZolam 0.25 MG TAB PO PRN (19:29)
[2022-10-29 19:49] LABS: Basophils # (A) 0.1 k/uL (0-0.2); Basophils % (A) 1 %; Eosinophils # (A) 0.3 k/uL (0-0.7); Eosinophils % (A) 3 %; HCT 48.2 % (39.0-53.0); HGB 15.7 gm/dL (13.0-17.5); Lymphocytes % (A) 22 %; MCH 28.5 pg (25.0-35.0); MCHC 32.5 g/dL (31.0-37.0); MCV 87.5 fL (80.0-100.0); Mean Platelet Volume 8.8; Monocytes # (A) 1.1 k/uL (0-1.0); Monocytes % (A) 12 %; Neutrophils # (A) 5.5 k/uL (1.3-7.7); Neutrophils % (A) 61 %; Platelet Count 196 k/uL (150-450); RDW 13.2 % (11.5-15.5); WBC 9.1 k/uL (3.8-10.6)
[2022-10-29] MEDS: SODIUM CHLORIDE 0.9% 1,000 ML in EMPTY BAG 1 BAG IV SCH (20:09)
[2022-10-29 20:16] LABS: African American GFR (CKD) 34 (>60 ml/min/1.73 sqM); Anion Gap 9 mmol/L; Blood Urea Nitrogen 39 mg/dL (9-20); Calcium 9.7 mg/dL (8.4-10.2); Carbon Dioxide 28 mmol/L (22-30); Chloride 101 mmol/L (98-107); Glucose 204 mg/dL (74-99); Non-African American GFR(CKD) 30 (>60 ml/min/1.73 sqM); Potassium 4.5 mmol/L (3.5-5.1); Sodium 138 mmol/L (137-145)
[2022-10-30] MEDS ORDERED: ASPIRIN 325 MG TAB PO ONE (05:00)
[2022-10-30] MEDS ORDERED: ATORVASTATIN 80 MG TAB PO ONE (05:00)
[2022-10-30] MEDS ORDERED: HEPARIN SODIUM,PORCINE 10,000 UNIT in SODIUM CHLORIDE 0.9% 1,000 ML IRRIGATION PRN (05:00)
[2022-10-30] MEDS ORDERED: HEPARIN SODIUM,PORCINE 2,500 UNIT in SODIUM CHLORIDE 0.9% 250 ML IRRIGATION PRN (05:00)
[2022-10-30 05:10] VITALS: PULSE 53
[2022-10-30] MEDS ORDERED: MIDAZOLAM 2 MG/2 ML VIAL IV ONE (07:22)
[2022-10-30] MEDS ORDERED: LIDOCAINE 1% INJ 10MG/ML (5 ML VIAL-PF) SQ ONE (07:26)
[2022-10-30] MEDS ORDERED: VERAPAMIL SYRINGE (5 MG/10 ML) INTRAARTER ONE (07:28)
[2022-10-30] MEDS ORDERED: HEPARIN SODIUM 1,000 UN/ML (10ML VL) IV ONE (07:33)
[2022-10-30] MEDS ORDERED: IV FLUID CONTINUATION 250 ML IV ONE (07:33)
[2022-10-30] MEDS ORDERED: IOPAMIDOL-370 100ML BTL INJ ONE (07:56)
[2022-10-30] MEDS ORDERED: SODIUM CHLORIDE 0.9% 1,000 ML IV SCH (08:15)
--- NOTE | 2022-10-30 08:39 | CC ---
CARDIAC CATHETERIZATION REPORT PROCEDURES PERFORMED: Left heart catheterization and coronary angiography. PERFORMED BY: Dr. Lázaro Lamas. ANESTHESIA: Moderate conscious sedation time was 26 minutes. The patient was administered Versed. Oxygen saturation, hemodynamics, and EKG were monitored closely. CLINICAL INFORMATION: Mr. Jose Gonzalez is a 72-year-old gentleman with history of CAD, previous inferior OK, and multivessel PCI including all three vessels, LAD, RCA, and circumflex. The most recent PCI was that of the ostium of RCA performed on August 22 of this year after performing an orbital atherectomy and stenting of this vessel. He has been having increasing symptoms of angina, saw me in the office last week, and therefore, was brought in for the procedure. 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 He was brought in yesterday, hydrated, and brought in for the cardiac cath today from right radial approach. I explained to the patient that I will probably stage the procedure given his renal status. He also has hypertension, hyperlipidemia, and diabetes as well. PROCEDURE NOTE: Under local anesthesia and strict aseptic precautions, a 6-Guinean introducer was placed in the right radial artery. I used a JL3.5 and JR4 catheters and performed coronary angiography. The same right catheter was used to check LV pressure, but LV-gram was not performed. The catheter and sheath were taken out and a TR band applied as per protocol, and the patient was sent to the room in stable condition. CARDIAC CATHETERIZATION FINDINGS: The left ventricular end-diastolic pressure was about 10 to 12 mmHg without any gradient across the aortic valve. CORONARY ANGIOGRAPHY FINDINGS: RIGHT CORONARY ARTERY: This is a dominant vessel. The proximal and ostial RCA is patent, where the stent was placed on August 22. Mid RCA has 60%, distally bifurcates into PDA and PLV. The PDA has competitive flow with a total occlusion and a subtotal occlusion as it comes off from the main RCA, and then, an occlusion distal to that after it gives off a secondary branch, and there was some competitive flow noted. The PLV, however, has again a 70% to 80% stenosis in the midportion, but is a relatively small vessel. These two branches could be the culprit vessel for the patient's angina. LEFT MAIN CORONARY ARTERY: Short, patent, disease-free vessel that bifurcates into LAD and circumflex. LEFT ANTERIOR DESCENDING CORONARY ARTERY: Fair caliber vessel that extends along the anterior wall. There are previously placed stents in it. The prox/ mid LAD has a calcified 60% lesion, gives off two diagonal branches. The second diagonal is large and several septal branches, runs all the way to the apex. No other significant disease. LAD provides collaterals to the PDA branch of RCA. LEFT POSTERIOR CIRCUMFLEX CORONARY ARTERY: Nondominant vessel that was stented in February of last year in [place], is widely patent. Ostium has about a 50% lesion, proximal portion has a widely patent stent, and gives off a small branch and then runs laterally. The entire obtuse marginal system has minor irregularities, heavily calcified, but no significant disease. Left ventriculogram was not performed. FINAL IMPRESSION: This patient has normal filling pressures. No gradient. He has a right- dominant system with a patent stent in the proximal and ostial RCA, but the PDA branch is subtotally occluded. The PLV has a 95% stenosis. This may be the culprit lesion. The LAD has a 40% mid lesion. RCA has an additional 50% lesion in the mid portion. LAD has a calcified 60% lesion with no significant distal stenosis. Circumflex has a 50% ostial lesion, but no other significant disease is noted. RECOMMENDATIONS: I did not recommend intervention since I gave nearly 60 to 70 mL of dye and his threshold was 90 mL. PCI of PDA and PLV will be technically difficult given the fact we have to go through the main artery, which has multiple stents and heavy calcification. The mid RCA has about a 60% lesion that may also need to be addressed. Considering the fact that this will be a difficult intervention, requiring a lot of contrast, I abandoned the procedure and suggested I will discuss different options including FFR and CABG. The patient will be discharged later today after hydration. I will see him in the office in 48 hours. Same home medications. There was no family available, but I discussed with him at length the findings and thoughts, and I will present a couple of different options after reviewing the angiograms and see what is the best way to revascularize his branches of RCA and LAD. There is a limitation because of his creatinine. Contrast threshold was 90. We gave him nearly 70 mL today. He will be hydrated and discharged later on. I will see him in 48 hours. MMODL / IJN: [id number] / SLADE
[2022-10-30] MEDS ORDERED: amLODIPine 5 MG TAB PO SCH (09:04)
[2022-10-30] MEDS ORDERED: ASPIRIN 81 MG PO SCH (09:05)
[2022-10-30] MEDS ORDERED: SPIRONOLACTONE 25 MG TAB PO SCH (09:07)
[2022-10-30] MEDS ORDERED: DAPAGLIFLOZIN PROPANEDIOL 5 MG TABLET PO SCH ×2 (09:08→18:30)
[2022-10-30] MEDS ORDERED: LINAGLIPTIN 5 MG TABLET PO SCH (09:15)
[2022-10-30] MEDS ORDERED: METOPROLOL TARTRATE 12.5 MG TAB PO SCH (09:15)
[2022-10-30] MEDS: SODIUM CHLORIDE 0.9% 1,000 ML in EMPTY BAG 1 BAG IV SCH (09:56)
[2022-10-30 14:26] VITALS: BP 149/82; RESP 16; TEMP 97.5
[2022-10-30] MEDS ORDERED: ATORVASTATIN 40 MG TAB PO SCH (18:30)
[2022-10-30] MEDS ORDERED: TACROLIMUS 1 MG CAP PO SCH (18:30)
[2022-10-30] MEDS ORDERED: CLOPIDOGREL 75 MG TAB PO SCH (18:30)
[2022-10-30] MEDS ORDERED: TIMOLOL 0.5% OPHTH DROPS 5 ML BTL BOTH EYES SCH (18:30)
[2022-10-30] MEDS ORDERED: BRIMONIDINE TARTRATE 0.2% DROPS 5 ML BTL BOTH EYES SCH (18:30)
[2022-10-30] MEDS ORDERED: ISOSORBIDE MONONITRATE ER 30 MG TAB.ER.24H PO SCH (18:30)
[2022-10-30] MEDS ORDERED: LORATADINE 10 MG TAB PO SCH (18:30)
[2022-10-30] MEDS ORDERED: EZETIMIBE 10 MG TAB PO SCH (18:30)
[2022-10-30] MEDS ORDERED: LATANOPROST 0.005% OPHTH DROPS 2.5 ML BTL BOTH EYES SCH (21:00)
[2022-10-31] MEDS ORDERED: LINAGLIPTIN 5 MG TABLET PO SCH (08:00)
[2022-10-31] MEDS ORDERED: ASPIRIN 81 MG PO SCH (08:00)
[2022-10-31] MEDS ORDERED: SPIRONOLACTONE 25 MG TAB PO SCH (08:00)
[2022-10-31] MEDS ORDERED: DAPAGLIFLOZIN PROPANEDIOL 5 MG TABLET PO SCH (08:00)
[2022-10-31] MEDS ORDERED: amLODIPine 5 MG TAB PO SCH (08:00)
[2022-10-31] MEDS ORDERED: FERROUS SULFATE 325 MG TAB PO SCH (08:00)
[2022-10-31] MEDS ORDERED: MULTIVITAMINS, THERA 1 EACH TAB PO SCH (08:00)
[2022-10-31] MEDS ORDERED: METOPROLOL TARTRATE 12.5 MG TAB PO SCH (08:00)
[2022-11-01] MEDS ORDERED: FUROSEMIDE 20 MG TAB PO SCH (08:00)
[2022-11-01] MEDS ORDERED: Semaglutide [Ozempic] 0.25 MG/0.2 ML Each SQ SCH (09:00)
== END 2022-10-30 18:17 | disposition home or self-care (01) ==
LOC: 6NMEDSUR 19:17
PROVIDERS: ADMIT Internal Medicine Interventional Cardiology; ATTEND Internal Medicine Interventional Cardiology
DX: I25.119 Atherosclerotic heart disease of native coronary artery with unspecified angina pectoris (principal); I12.9 Hypertensive chronic kidney disease with stage 1 through stage 4 chronic kidney disease, or unspecified chronic kidney disease; E11.22 Type 2 diabetes mellitus with diabetic chronic kidney disease; N18.9 Chronic kidney disease, unspecified; G47.33 Obstructive sleep apnea (adult) (pediatric); I25.2 Old myocardial infarction; E78.00 Pure hypercholesterolemia, unspecified; F17.210 Nicotine dependence, cigarettes, uncomplicated; Z79.82 Long term (current) use of aspirin; Z79.02 Long term (current) use of antithrombotics/antiplatelets; Z79.84 Long term (current) use of oral hypoglycemic drugs; Z79.85 Long-term (current) use of injectable non-insulin antidiabetic drugs; Z79.899 Other long term (current) drug therapy; Z95.5 Presence of coronary angioplasty implant and graft
CPT/HCPCS: 93458; 80048; 85025; G0379; G0378 ×2; C1769; C1894; J2250; J2001; J1644; Q9967

== ENCOUNTER → 2022-11-01 | Outpatient (CLI) | payer MEDICARE ==
[2022-11-01 10:57] LABS: African American GFR (CKD) 31 (>60 ml/min/1.73 sqM); Anion Gap 10 mmol/L; Blood Urea Nitrogen 33 mg/dL (9-20); Carbon Dioxide 24 mmol/L (22-30); Chloride 105 mmol/L (98-107); Non-African American GFR(CKD) 26 (>60 ml/min/1.73 sqM); Sodium 139 mmol/L (137-145)
[2022-11-01 11:26] LABS: HCT 49.4 % (39.0-53.0); HGB 15.9 gm/dL (13.0-17.5); MCH 28.2 pg (25.0-35.0); MCHC 32.2 g/dL (31.0-37.0); MCV 87.4 fL (80.0-100.0); Platelet Count 210 k/uL (150-450); RBC 5.65 m/uL (4.30-5.90); RDW 13.1 % (11.5-15.5); WBC 8.6 k/uL (3.8-10.6)
== END | disposition home or self-care (01) ==
LOC: LABPAT 09:54
PROVIDERS: ATTEND Internal Medicine Interventional Cardiology
DX: Z01.812 Encounter for preprocedural laboratory examination (principal); I25.2 Old myocardial infarction
CPT/HCPCS: 36415; 80051; 82565; 84520; 85027

== ENCOUNTER 2022-11-07 07:54 | Day surgery (SDC) | payer MEDICARE ==
[2022-11-02 16:12] VITALS: BMI 27.6
[~2022-11-07 07:54] MED LIST: ALPRAZolam 0.25 MG TAB PO PRN; ALPRAZolam 0.5 MG TAB PO PRN; ASPIRIN 325 MG TAB PO STA; NITROGLYCERIN SL TABS 0.4 MG TAB SUBLINGUAL PRN; SODIUM CHLORIDE 0.9% 1,000 ML in EMPTY BAG 1 BAG IV SCH
[2022-11-07 08:15] VITALS: RESP 18
[2022-11-07 08:19] LABS: Glucose,Whole Blood 130 mg/dL (70-110)
[2022-11-07 08:25] VITALS: TEMP 97.1
[2022-11-07] MEDS ORDERED: MIDAZOLAM 2 MG/2 ML VIAL IV ONE (11:18)
[2022-11-07] MEDS ORDERED: LIDOCAINE 1% INJ 10MG/ML (5 ML VIAL-PF) SQ ONE (11:19)
[2022-11-07] MEDS ORDERED: VERAPAMIL SYRINGE (5 MG/10 ML) INTRAARTER ONE (11:23)
[2022-11-07] MEDS ORDERED: HEPARIN SODIUM 1,000 UN/ML (10ML VL) IV ONE (11:26)
[2022-11-07] MEDS ORDERED: NITROGLYCERIN 1000MCG/10ML SYRINGE INTRACORON ONE ×2 (11:39→11:56)
[2022-11-07] MEDS ORDERED: IOPAMIDOL-370 100ML BTL INJ ONE (11:56)
[2022-11-07] MEDS ORDERED: SODIUM CHLORIDE 0.9% 1,000 ML IV SCH (12:15)
--- NOTE | 2022-11-07 13:59 | CC ---
CARDIAC CATHETERIZATION REPORT PROCEDURES PERFORMED: 1. Limited coronary angiography. 2. IFR assessment of LAD, RCA, and circumflex. PERFORMED BY: Dr. Lázaro Lamas. ANESTHESIA: Moderate conscious sedation time was 43 minutes. The patient was administered Versed. Oxygen saturation, hemodynamics, and EKG were monitored closely. CLINICAL INFORMATION: Mr. Jose Gonzalez is a 72-year-old gentleman with a known history of CAD, who has undergone multiple interventions. His most recent intervention was of ostial and proximal RCA with orbital atherectomy and stenting on August 22, 2022. Prior to that, he has had in [place], [place], nondominant circumflex intervention performed as well and this was in February 2022. Prior to that, in 2015, I performed orbital atherectomy of mid LAD and this was in January 2016. He is having increasing anginal symptoms and last week I performed a cardiac cath on him on October 30, which revealed that LAD had a 60% calcified lesion, ostial circumflex had a 50% lesion, and distal branches of RCA were subtotally occluded, but the ostium of RCA and proximal RCA was patent. He was brought in for IFR assessment with the understanding that he may require aortocoronary bypass surgery. Films were reviewed by Cardiac Surgery as well. PROCEDURE NOTE: Under local anesthesia and strict aseptic precautions, a 6-Vietnamese introducer was placed in the right radial artery. I used a JL3.5 guide catheter to cannulate the left coronary artery and I used an Omni wire. After appropriate calibration, zeroing, and normalization in the aorta, the wire was advanced and kept in the mid to distal LAD. IFR assessment was performed. It was found to be 0.69 and 0.79. Subsequently, the wire was advanced and positioned in the circumflex, and the IFR assessment of the circumflex vessel was also performed and the circumflex IFR was 0.91. I then took the wire and the guide catheter out, and using a standard right Hai guide catheter, I performed assessment of the RCA. Up to the distal portion, the wire was kept. After appropriate calibration, normalization, and IFR assessment was performed, this was 0.89 and repeat one was 0.92. However, the distal branches of RCA had significant lesion. The assessment was performed only in the mid RCA where there was a moderate lesion. IMPRESSION: IFR assessment of left anterior descending is significant at 0.69. Circumflex IFR was about 0.91 to 0.92, borderline, not significant. Right coronary artery IFR was 0.89. There was a moderate mid right coronary artery lesion. However, the distal branches of right coronary artery have subtotal lesion and they will need to be grafted. RECOMMENDATIONS: I am recommending aortocoronary bypass surgery with a graft to the LAD and also to the distal two branches of RCA. Circumflex has a borderline IFR, may not need to be grafted. The first OM has also ostial lesion that may potentially be graftable. I made these recommendations, discussed with the patient and will request Dr. Kirkpatrick to see the patient today. The patient will be hydrated. He has membranous nephropathy with a creatinine between 2.3 to 2.6. MMODL / IJN: [id number] /
[2022-11-07 14:42] LABS: Basophils % (A) 0 %; Eosinophils # (A) 0.3 k/uL (0-0.7); Eosinophils % (A) 3 %; HCT 46.8 % (39.0-53.0); HGB 15.5 gm/dL (13.0-17.5); Lymphocytes % (A) 22 %; MCH 27.9 pg (25.0-35.0); MCV 84.3 fL (80.0-100.0); Mean Platelet Volume 9.1; Monocytes % (A) 11 %; Neutrophils # (A) 5.7 k/uL (1.3-7.7); Neutrophils % (A) 62 %; Platelet Count 193 k/uL (150-450); RBC 5.55 m/uL (4.30-5.90); RDW 13.4 % (11.5-15.5); WBC 9.2 k/uL (3.8-10.6)
--- NOTE | 2022-11-07 14:53 | XR ---
EXAMINATION TYPE: XR chest 2V DATE OF EXAM: 11/07/2022 2:41 PM COMPARISON: Chest radiographs from 11/07/2022 TECHNIQUE: XR chest 2V Frontal and lateral views of the chest. CLINICAL INDICATION:Male, 72 years old with history of PreOp Cardiac Surgery; FINDINGS: Lungs/Pleura: There is no evidence of pleural effusion, focal consolidation, or pneumothorax. Pulmonary vascularity: Unremarkable. Heart/mediastinum: Cardiomediastinal silhouette is unremarkable. Musculoskeletal: No acute osseous pathology. IMPRESSION: No acute cardiopulmonary disease/process.
[2022-11-07 15:02] LABS: INR 1.1 (<1.2); Partial Thromboplastin Time 41.3 sec (22.0-30.0); Prothrombin Time 11.2 sec (9.0-12.0)
[2022-11-07 15:20] LABS: ALT 26 U/L (4-49); AST 24 U/L (17-59); African American GFR (CKD) 36 (>60 ml/min/1.73 sqM); Albumin 3.8 g/dL (3.5-5.0); Alkaline Phosphatase 55 U/L (38-126); Anion Gap 8 mmol/L; Blood Urea Nitrogen 33 mg/dL (9-20); Carbon Dioxide 26 mmol/L (22-30); Chloride 103 mmol/L (98-107); Glucose 239 mg/dL (74-99); Non-African American GFR(CKD) 31 (>60 ml/min/1.73 sqM); Potassium 4.5 mmol/L (3.5-5.1); Sodium 137 mmol/L (137-145); Total Bilirubin 0.7 mg/dL (0.2-1.3); Total Protein 6.8 g/dL (6.3-8.2)
[2022-11-07 15:22] LABS: Magnesium 2.4 mg/dL (1.6-2.3)
--- NOTE | 2022-11-07 15:54 | CT ---
EXAMINATION TYPE: CT chest wo con DATE OF EXAM: 11/07/2022 COMPARISON: Chest x-ray earlier today HISTORY: pre-op open heart CT DLP: 505 mGycm. Automated Exposure Control for Dose Reduction was Utilized. TECHNIQUE: CT scan of the thorax is performed without IV contrast. FINDINGS: LUNGS: Mild left basilar linear scarring and/or atelectasis is redemonstrated. No pleural effusion or pneumothorax seen bilaterally. No focal consolidation is present. MEDIASTINUM: Lack of IV contrast is noted to limit evaluation for mediastinal and especially hilar ad enopathy. There are no definitive greater than 1 cm mediastinal lymph nodes. No cardiomegaly or per icardial effusion is seen. Severe three-vessel coronary artery calcification is noted. OTHER: Multilevel spurring in the thoracic spine is present. IMPRESSION: No significant acute findings are evident.
--- NOTE | 2022-11-07 16:06 | US ---
EXAMINATION TYPE: US carotid duplex BILAT DATE OF EXAM: 11/07/2022 Exam done portable COMPARISON: NONE CLINICAL INDICATION: Male, 72 years old with history of Pre-Op Cardiac Surgery; TECHNIQUE: Carotid duplex ultrasound examination. Indirect Doppler criteria was utilized. FINDINGS: EXAM MEASUREMENTS: RIGHT: Peak Systolic Velocity (PSV) cm/sec ----- Right CCA: 89.0 ----- Right ICA: 93.5 ----- Right ECA: 101.0 ICA/CCA ratio: 1.1 RIGHT: End Diastole cm/sec ----- Right CCA: 13.0 ----- Right ICA: 19.7 ----- Right ECA: 0.0 LEFT: Peak Systolic Velocity (PSV) cm/sec ----- Left CCA: 87.7 ----- Left ICA: 72.3 ----- Left ECA: 82.4 ICA/CCA ratio: 0.8 LEFT: End Diastole cm/sec ----- Left CCA: 19.7 ----- Left ICA: 21.7 ----- Left ECA: 0.0 VERTEBRALS (direction of flow): Right Vertebral: Antegrade Left Vertebral: Antegrade Rhythm: Normal No significant stenosis IMPRESSION: Less than 50% stenosis of the bilateral carotid bifurcations. Criteria for Assigning % of Stenosis / Diameter reduction (Estimation based on the indirect measurements of the internal carotid artery velocities (ICA PSV). 1. Normal (no stenosis)=ICA PSV < 125 cm/s: ratio < 2.0: ICA EDV<40 cm/s. 2. Less than 50% stenosis=ICA PSV < 125 cm/s: ratio < 2.0: ICA EDV<40 cm/s. 3. 50 to 69% stenosis=ICA PSV of 125 to 230 cm/s: ration 2.0 ? 4.0: ICA EDV 40-100 cm/s. 4. Greater than 70% stenosis to near occlusion= ICA PSV > 230 cm/s: ratio > 4.0: ICA EDV > 100 cm/s. 5. Near occlusion= ICA PSV velocities may be low or undetectable: variable ratio and ICA EDV. 6. Total occlusion=unable to detect flow.
--- NOTE | 2022-11-07 16:08 | US ---
EXAMINATION TYPE: Pre-Operative Non-Invasive Evaluation of the hand for Potential Radial Artery Francisco Javier medina, Measurements only DATE OF EXAM: 11/07/2022 3:48 PM Exam done portable CLINICAL INDICATION: Male, 72 years old with history of Pre-Op Cardiac Surgery; SIDE PERFORMED: Left TECHNIQUE: Radial artery is measured utilizing real time linear array sonography. Dominant hand: Right Duplex Findings: Radial Artery: Color flow seen Measurements in mm, transverse view: Left Radial: Proximal: deferred due to IV site Mid: 1.9 x 2.2 mm Distal: 2.3 x 2.7 mm IMPRESSION: 1. Left measurements listed above. 2. Performing surgeon to determine viability as conduit.
--- NOTE | 2022-11-07 16:11 | US ---
EXAMINATION TYPE: US vein mapping BILAT DATE OF EXAM: 11/07/2022 3:48 PM Exam done portable COMPARISON: NONE CLINICAL INDICATION: Male, 72 years old with history of PreOp Cardiac Surgery; SIDE PERFORMED: Bilateral TECHNIQUE: Lower extremity saphenous vein is examined and measured utilizing real time linear array sonography. DUPLEX FINDINGS: Greater Saphenous: Color flow seen Measurements in mm: Right Greater Saphenous: Groin: 6.0 x 5.5 mm High Thigh: 4.4 x 4.5 mm Mid Thigh: 3.4 x 3.9 mm Above Knee: 3.1 x 3.9 mm Knee: 4.3 x 4.5 mm Below Knee: 2.6 x 3.2 mm Mid Calf: 1.9 x 2.4 mm At Ankle: 3.1 x 3.8 mm Left Greater Saphenous: Groin: 5.8 x 5.6 mm High Thigh: 6.2 x 6.6 mm Mid Thigh: 3.8 x 3.8 mm Above Knee: 3.8 x 4.3 mm Knee: 2.8 x 3.1 mm Below Knee: 2.7 x 3.2 mm Mid Calf: 2.2 x 2.9 mm At Ankle: 2.0 x 2.4 mm IMPRESSION: 1. Bilateral GSV measurements listed above. 2. Performing surgeon to determine viability as conduit.
--- NOTE | 2022-11-07 16:51 | P.GSCN ---
History of Present Illness Consult date: 11/07/22 Reason for Consult: Coronary artery disease Requesting physician: Armando Lamas History of present illness: This is a 72-year-old gentleman who follows on an outpatient basis for primary care with Dr. Bazan and follows with Dr. NICCI Lamas for his cardiology care. The patient has past medical history significant for multivessel coronary artery disease with history of multiple stent placements in the past with his most recent stent to his right coronary artery in August 2022, he also has a history of membranous neuropathy, chronic kidney disease, hypertension, hyperlipidemia, diabetes mellitus type 2, a CVA with continued problems with balance, sleep apnea with BiPAP use, remote history of tobacco dependence in which he quit smoking over 40 years ago and he has a significant family history for early onset coronary artery disease with one of his brothers needing a heart transplant in his 40s. Recently, the patient has had complaints of pain to his lower jaw with activity and resolves with rest. He denies any associated shortness of breath or becoming diaphoretic. Denies any recent fever, chills, nausea, vomiting, headache, lightheadedness, diarrhea, constipation, cough, presyncope or syncope. The patient underwent stenting of the proximal right coronary artery in August 2022 and due to the patient's continued complaint of occasional angina type symptoms he was recommended to undergo a repeat cardiac catheterization with FFR. The cardiac catheterization was completed today by Dr. NICCI Lamas and demonstrated an IFR to be significant to his left anterior descending coronary artery at 0.69, the IFR to his right coronary artery was 0.89 and the IFR to his circumflex coronary artery was found to be borderline at 0.91. Subsequently, due to the patient's symptoms and findings on today's heart catheterization a consult was placed to cardiothoracic surgery for further evaluation and treatment recommendations including myocardial revascularization surgery. Review of Systems A 14 point review of systems was completed it was negative except as mentioned in the HPI. Past Medical History Past Medical History: Coronary Artery Disease (CAD), Chest Pain / Angina ( ), Diabetes Mellitus, Eye Disorder, Hyperlipidemia, Hypertension, Renal Disease, Sleep Apnea/CPAP/BIPAP Additional Past Medical History / Comment(s): NIDDM type II, neuropathy bilateral feet, pancreatitis x2, FORREST with CPAP,glaucoma, sees kidney dr History of Any Multi-Drug Resistant Organisms: None Reported Past Surgical History: Heart Catheterization With Stent, Tonsillectomy Additional Past Surgical History / Comment(s): PCI with stent in LAD/RCA, cardiac angioplasty in , bilateral laser eye surgery for glaucoma, colonoscopy, heart catheterization with stent February 2022 in [facility], [facility], and 11/07[facility]2022 Past Anesthesia/Blood Transfusion Reactions: No Reported Reaction Additional Past Anesthesia/Blood Transfusion Reaction / Comm: no blood tx hx Date of Last Stent Placement:: 08/15/2022 Past Psychological History: No Psychological Hx Reported Smoking Status: Former smoker (Quit smoking over 40 years ago) Past Alcohol Use History: Rare Past Drug Use History: None Reported - Past Family History Father Family Medical History: Cancer Additional Family Medical History / Comment(s): Leukemia Mother Family Medical History: Diabetes Mellitus Brother(s) Additional Family Medical History / Comment(s): His brother had severe heart disease and was on the heart transplant list in his 40s Medications and Allergies Home Medications Medication Instructions Recorded Confirmed Type Brimonidine Tartrate/Timolol 1 drop BOTH EYES BID@0800,1830 12/23/15 11/07/22 History [Combigan 0.2%-0.5% Eye Drops] Cetirizine HCl [Zyrtec] 10 mg PO HS@182912/19/19 11/07/22 History Latanoprost/Pf [Latanoprost 0.005% 1 drop BOTH EYES HS 12/19/19 11/07/22 History Eye Drop] Dapagliflozin Propanediol [Farxiga] 5 mg PO HS@182908/14/22 11/07/22 History Ergocalciferol (Vitamin D2) 1,250 mcg PO SUMOTUWE@0800 08/14/22 11/07/22 History [Drisdol (50,000 Iu)] Ezetimibe [Zetia] 10 mg PO HS@182908/14/22 11/07/22 History Furosemide [Lasix] 20 mg PO Q2D@0800 08/14/22 11/07/22 History Rosuvastatin [Crestor] 20 mg PO HS@1830 08/14/22 11/07/22 History Tacrolimus [Prograf] 1 mg PO BID@0800,1830 08/14/22 11/07/22 History amLODIPine [Norvasc] 5 mg PO DAILY@79908/14/22 11/07/22 History sitaGLIPtin [Januvia] 100 mg PO DAILY@79908/14/22 11/07/22 History Clopidogrel [Plavix] 75 mg PO HS@182908/21/22 11/07/22 History Isosorbide Mononitrate ER [Imdur] 30 mg PO HS@182908/21/22 11/07/22 History Multivitamins, Thera [Multivitamin 1 tab PO DAILY@79908/21/22 11/07/22 History (formulary)] Aspirin 81 mg PO DAILY@79910/29/22 11/07/22 History Empagliflozin [Jardiance] 10 mg PO DAILY@79910/29/22 11/07/22 History Ferrous Sulfate [Feosol] 325 mg PO DAILY@79910/29/22 11/07/22 History Metoprolol Tartrate [Lopressor] 12.5 mg PO DAILY@79910/29/22 11/07/22 History Mometasone/Formoterol [Dulera 200 2 puff INHALATION RT-BID 10/29/22 11/07/22 History Mcg-5 Mcg Inhaler] Semaglutide [Ozempic] 0.25 mg SQ WE 10/29/22 11/07/22 History Spironolactone [Aldactone] 25 mg PO DAILY@79910/29/22 11/07/22 History Allergies Allergy/AdvReac Type Severity Reaction Status Date / Time No Known Allergies Allergy Verified 11/07/22 08:10 Surgical - Exam Vital Signs Temp Pulse Resp BP Pulse Ox 97.1 F L 55 L 18 156/85 98 11/07/22 08:14 11/07/22 08:14 11/07/22 08:14 11/07/22 08:14 11/07/22 08:14 - General well developed, well nourished, no distress, no pain - Eyes PERRL, normal ocular movement, no pale, no icteric - ENT normal pinna, normal nares, normal mucosa, no hearing loss, no congestion - Neck Neck is supple, no lymphadenopathy no masses, no bruits, trachea midline, no venous distension - Respiratory Lung sounds essentially clear throughout. Respirations are symmetrical and nonlabored. No wheezes, rhonchi or crackles. - Cardiovascular Regular rhythm and rate. S1 and S2 present, negative for S3, gallop or murmur. - Abdomen Abdomen is soft, nontender and nondistended. Active bowel sounds present in all 4 abdominal quadrants. No guarding or rigidity. - Genitourinary Deferred - Rectum Deferred - Integumentary Skin is warm and dry. No clubbing or cyanosis is present. no rash, no growths, no abnormal pigmentation - Musculoskeletal Moves all 4 extremities with equal strength bilateral. normal gait, normal posture - Psychiatric oriented to time, oriented to person, oriented to place, speech is normal, memory intact Results - Labs 11/07/22 14:30 11/07/22 14:30 Abnormal Lab Results - Last 24 Hours (Table) 11/07/22 11/07/22 11/07/22 Range/Units 08:15 14:30 14:30 APTT 41.3 H (22.0-30.0) sec BUN (9-20) mg/dL Creatinine (0.66-1.25) mg/dL Glucose (74-99) mg/dL POC Glucose (mg/dL) 130 H (70-110) mg/dL Magnesium 2.4 H (1.6-2.3) mg/dL 11/07/22 Range/Units 14:30 APTT (22.0-30.0) sec BUN 33 H (9-20) mg/dL Creatinine 2.09 H (0.66-1.25) mg/dL Glucose 239 H (74-99) mg/dL POC Glucose (mg/dL) (70-110) mg/dL Magnesium (1.6-2.3) mg/dL Diabetes panel 11/07/22 Range/Units 14:30 Sodium 137 (137-145) mmol/L Potassium 4.5 (3.5-5.1) mmol/L Chloride 103 (98-107) mmol/L Carbon Dioxide 26 (22-30) mmol/L BUN 33 H (9-20) mg/dL Creatinine 2.09 H (0.66-1.25) mg/dL Glucose 239 H (74-99) mg/dL Calcium 9.0 (8.4-10.2) mg/dL AST 24 (17-59) U/L ALT 26 (4-49) U/L Alkaline Phosphatase 55 (38-126) U/L Total Protein 6.8 (6.3-8.2) g/dL Albumin 3.8 (3.5-5.0) g/dL Thyroid panel 11/07/22 Range/Units 14:30 TSH 1.010 (0.465-4.680) mIU/L Calcium panel 11/07/22 Range/Units 14:30 Calcium 9.0 (8.4-10.2) mg/dL Albumin 3.8 (3.5-5.0) g/dL Pituitary panel 11/07/22 11/07/22 Range/Units 14:30 14:30 Sodium 137 (137-145) mmol/L Potassium 4.5 (3.5-5.1) mmol/L Chloride 103 (98-107) mmol/L Carbon Dioxide 26 (22-30) mmol/L BUN 33 H (9-20) mg/dL Creatinine 2.09 H (0.66-1.25) mg/dL Glucose 239 H (74-99) mg/dL Calcium 9.0 (8.4-10.2) mg/dL TSH 1.010 (0.465-4.680) mIU/L Adrenal panel 11/07/22 Range/Units 14:30 Sodium 137 (137-145) mmol/L Potassium 4.5 (3.5-5.1) mmol/L Chloride 103 (98-107) mmol/L Carbon Dioxide 26 (22-30) mmol/L BUN 33 H (9-20) mg/dL Creatinine 2.09 H (0.66-1.25) mg/dL Glucose 239 H (74-99) mg/dL Calcium 9.0 (8.4-10.2) mg/dL Total Bilirubin 0.7 (0.2-1.3) mg/dL AST 24 (17-59) U/L ALT 26 (4-49) U/L Alkaline Phosphatase 55 (38-126) U/L Total Protein 6.8 (6.3-8.2) g/dL Albumin 3.8 (3.5-5.0) g/dL - Imaging Additional studies: Cardiac catheterization films reviewed by Dr. Jovan Solano Assessment and Plan Assessment: Multivessel coronary artery disease, status post multiple PCI Hypertension Hyperlipidemia CVA 2-1/2 years ago with continued problems with balance Diabetes mellitus type 2 Chronic kidney disease with a baseline creatinine of 2.5 range Sleep apnea with home BiPAP use Membranos neuropathy Remote history of tobacco dependence, quit smoking 40 years ago Family history of early onset coronary artery disease with his brother needing a heart transplant in his early 40s Plan: The patient was seen and examined at his bedside in the extended stay unit. His chart and diagnostics were reviewed. His case was discussed in detail with Dr. Jovan Solano from cardiothoracic surgery. Preoperative testing and preoperative teaching has been initiated. We will obtain a transthoracic 2-D echocardiogram for evaluation of his valves. The patient is currently taking Plavix and will need to hold his Plavix one scheduled for surgery 5-7 days prior which will be further discussed when the patient follows up with Dr. Kirkpatrick. The patient has been scheduled to see Dr. Kirkpatrick on an outpatient on 11/16/2022 at 1:45 PM. A 5 m walk test was completed with the patient with time 1: 2.20 seconds, time 2: 2 .31 seconds, and times 3: 1.95 seconds. The patient tolerated the 5 m walk test without difficulty and denies any complaints of chest pain/pressure or shortness of breath. Once his preoperative testing has been completed an STS risk score will be calculated and discussed with the patient. More re commendations to follow based on clinical course. Medical management other comorbidities per primary care service and cardiology. Dr. Solano met with the patient and the patient's daughter present at his bedside discussed the usual course of myocardial revascularization surgery, risks and benefits of surgery were discussed. Knowing and understanding the risks the patient would like to proceed with the surgical option. Thank you Dr. Lamas for this consult and we will look forward to following with you in the care of this patient. I have personally seen and examined the patient, performed the documentation and the assessment and plan as written. 30 minutes spent on the visit . Rashid ROD Pt seen and evaluated with WAREHOUSE DELIVERY DRIVER above. Agree with his assessment and plan. This is a 72 y/o M with a hx of multiple ANALYTICS ANALYST to the RCA and known coronary artery disease involving the circumflex and LAD who is brought back to the equipment operator/laborer for IFR measurements. There seems to be significant in stent stenosis in the RCA and significant LAD disease. Despite an ostial lesion in the circumflex there is no significant lesion here as measured by FFR. Nonetheless the patient is a good candidate for CABG x 2. We will plan to have him see my partner Dr. Kirkpatrick as an outpatient to schedule surgery. I spent 35 minutes evaluating the data and discussing the findings with the patient and his daughter.
[2022-11-07 17:22] VITALS: BP 161/76; PULSE 49
[2022-11-07 17:46] LABS: Appearance,Urine Clear (Clear); Bilirubin,Urine Negative (Negative); Blood,Urine Negative (Negative); Color,Urine Light Yellow; Glucose,Urine (UA) 4+ (Negative); Ketones,Urine Negative (Negative); Leukocyte Esterase,Urine Negative (Negative); Nitrite,Urine Negative (Negative); PH, Urine 5.5 (5.0-8.0); Protein,Urine 1+ (Negative); RBC,Urine <1 /hpf (0-5); Urobilinogen,Urine <2.0 mg/dL (<2.0); WBC,Urine <1 /hpf (0-5)
[2022-11-07 20:18] LABS: Chol/HDL Ratio 2.35 Ratio; LDL Cholesterol,Calculated 20.6 mg/dL (0.0-131.0)
[2022-11-07 22:19] LABS: Hepatitis A Antibody IgM Nonreactive; Hepatitis B Core IgM Nonreactive; Hepatitis B Surface Antigen Nonreactive; Hepatitis C IgG Antibody Nonreactive
--- NOTE | 2022-11-08 07:27 | US ---
EXAMINATION TYPE: US arterial LE single level DATE OF EXAM: 11/07/2022 5:13 PM CLINICAL INDICATION: Male, 72 years old with history of Ankle Brachial Index (ELIEL) ; ELIEL. Right Brachial Pressure: 140 Left Brachial Pressure: 145 Ankle-Brachial Indices: Right: 1.1 Left: 0.92 Toe Brachial Indices: Right: 0.76 Left: 0.56 Right DPA inaudible (Vessel hardening > 1.4; Normal 0.9 - 1.4, Moderate 0.7 - 0.9, Severe 0.5-0.7) IMPRESSION: Ankle-brachial indices within normal limits. There is moderate to severe peripheral vascular disease involving the feet bilaterally based on toe brachial indices.
--- NOTE | 2022-11-08 09:57 | CA ---
Transthoracic Echo Report Name: Jose Gonzalez Age: 72 Gender: M : 1950 Exam Date: 11/07/2022 17:31 Exam Location: [facility] Ht (in): 69 Wt (lb): 188 Ordering Physician: Jose Crane Attending/Referring Phys: Abrading Machine Tender Nadine Recinos RDCS Procedure CPT: Indications: pre op cardiac surgery Cardiac Hx: Technical Quality: Good Contrast 1: Total Dose (mL): Contrast 2: Total Dose (mL): MEASUREMENTS (Male / Female) Normal Values 2D ECHO LV Diastolic Diameter PLAX 4.5 cm 4.2 - 5.9 / 3.9 - 5.3 cm LV Systolic Diameter PLAX 3.2 cm IVS Diastolic Thickness 1.2 cm 0.6 - 1.0 / 0.6 - 0.9 cm LVPW Diastolic Thickness 1.2 cm 0.6 - 1.0 / 0.6 - 0.9 cm LV Relative Wall Thickness 0.5 RV Internal Dim ED PLAX 3.3 cm LA Systolic Diameter LX 4.1 cm 3.0 - 4.0 / 2.7 - 3.8 cm LV Diastolic Volume MOD 4C 102.0 cm??? LV Systolic Volume MOD 4C 41.5 cm??? LV Ejection Fraction MOD 4C 59.3 % LV Cardiac Index MOD 4C 1413.0 cm???/min???m??? LV Diastolic Length 4C 9.4 cm LV Systolic Length 4C 7.3 cm LV Diastolic Volume MOD 2C 77.3 cm??? LV Systolic Volume MOD 2C 30.0 cm??? LV Ejection Fraction MOD 2C 61.2 % LV Cardiac Index MOD 2C 1105.3 cm???/min???m??? LV Diastolic Length 2C 9.4 cm LV Systolic Length 2C 7.6 cm LA Volume 63.1 cm??? 18 - 58 / 22 - 52 cm??? M-MODE Aortic Root Diameter MM 3.4 cm MV E Point Septal Separation 0.3 cm AV Cusp Separation MM 2.3 cm DOPPLER AV Peak Velocity 116.0 cm/s AV Peak Gradient 5.4 mmHg AI Peak Velocity 395.8 cm/s AI Peak Gradient 62.7 mmHg AI Pressure Half Time 1029.3 ms MV Area PHT 1.9 cm??? Mitral E Point Velocity 64.2 cm/s Mitral A Point Velocity 89.6 cm/s Mitral E to A Ratio 0.7 MV Deceleration Time 394.8 ms MV E' Velocity 3.6 cm/s Mitral E to MV E' Ratio 18.0 TR Peak Velocity 238.3 cm/s TR Peak Gradient 22.7 mmHg Right Ventricular Systolic Press 27.7 mmHg FINDINGS Left Ventricle Left ventricular ejection fraction is estimated at 55-60 %. Left ventricular cavity size normal. Borderline left ventricular hypertrophy. Right Ventricle Mild right ventricular dilatation. Right ventricular systolic pressure within normal limits. Right ventricular systolic pressure estimated at 28 mm hg. Right Atrium Normal right atrial size. Left Atrium Mildly increased left atrial diameter. Mildly increased left atrial volume. Mitral Valve Structurally normal mitral valve. No mitral stenosis, regurgitation or prolapse. Aortic Valve Trileaflet aortic valve. Mild aortic regurgitation. Tricuspid Valve Structurally normal tricuspid valve. Mild tricuspid regurgitation. Pulmonic Valve Structurally normal pulmonic valve. Trace pulmonic regurgitation. Pericardium Normal pericardium. No pericardial effusion. Aorta Normal size aortic root and proximal ascending aorta. CONCLUSIONS Normal LV size and systolic function with borderline left ventricular hypertrophy. Minimal mitral and tricuspid regurgitation no pulmonary hypertension. No pericardial effusion Previewed by: Dr. Armando Lamas MD (Electronically Signed) Final Date: 08 November 2022 09:56
== END 2022-11-07 18:07 | disposition home or self-care (01) ==
LOC: CATHCVL 07:54
PROVIDERS: ATTEND Internal Medicine Interventional Cardiology
DX: I25.10 Atherosclerotic heart disease of native coronary artery without angina pectoris (principal); I25.2 Old myocardial infarction; I08.2 Rheumatic disorders of both aortic and tricuspid valves; Z95.5 Presence of coronary angioplasty implant and graft; I12.9 Hypertensive chronic kidney disease with stage 1 through stage 4 chronic kidney disease, or unspecified chronic kidney disease; N18.9 Chronic kidney disease, unspecified; E11.41 Type 2 diabetes mellitus with diabetic mononeuropathy; G47.33 Obstructive sleep apnea (adult) (pediatric); Z86.73 Personal history of transient ischemic attack (TIA), and cerebral infarction without residual deficits; Z99.89 Dependence on other enabling machines and devices; Z87.891 Personal history of nicotine dependence; Z82.49 Family history of ischemic heart disease and other diseases of the circulatory system; E11.22 Type 2 diabetes mellitus with diabetic chronic kidney disease; Z87.19 Personal history of other diseases of the digestive system; Z79.84 Long term (current) use of oral hypoglycemic drugs; Z79.02 Long term (current) use of antithrombotics/antiplatelets; Z79.82 Long term (current) use of aspirin; Z79.51 Long term (current) use of inhaled steroids; Z79.899 Other long term (current) drug therapy
CPT/HCPCS: 93454; 93799; 93306; 94150; 80061; 80053; 80074; 84443; 83735; 85025; 85610; 85730; 81001; 87070; 83036; 71046; 93931; 93970; 93922; 93880; 71250; 99152; 99153 ×2; C1887 ×2; C1769 ×2; C1894; J2250; J2001; J1644; Q9967

== ENCOUNTER → 2022-11-23 | Outpatient (CLI) | payer MEDICARE ==
[2022-11-23 12:28] LABS: Partial Thromboplastin Time 24.9 sec (22.0-30.0); Prothrombin Time 10.7 sec (9.0-12.0)
[2022-11-23 15:35] LABS: HCT 50.1 % (39.6-50.0); HGB 16.5 d/dL (12.0-15.0); MCHC 32.9 d/dL (32.0-37.0); MCV 85.1 FL (80.0-97.0); Mean Platelet Volume 11.7 FL (9.5-12.2); NRBC Per 100 WBC 0 X 10*3/uL (0.00-0.01); Platelet Count 218 X 10*3/uL (140-440); RBC 5.89 X 10*6/uL (4.40-5.60); RDW 13.2 % (11.5-14.5); WBC 8.91 X 10*3/uL (4.50-10.00)
[2022-11-23 16:04] LABS: ALT 32 U/L (10-49); AST 26 U/L (14-35); Albumin 4.4 d/dL (3.8-4.9); Albumin/Globulin Ratio 1.42 Ratio (1.60-3.17); Alkaline Phosphatase 65 U/L (41-126); BUN/Creat Ratio 13.12 Ratio (12.00-20.00); Blood Urea Nitrogen 34.1 mg/dL (9.0-27.0); Calcium 10.5 mg/dL (8.7-10.3); Carbon Dioxide 28.2 mmol/L (21.6-31.8); Chloride 98 mmol/L (96-109); Globulin 3.1 d/dL (1.6-3.3); Glucose 263 mg/dL (70-110); Potassium 5.2 mmol/L (3.5-5.5); Sodium 139 mmol/L (135-145); Total Bilirubin 0.5 mg/dL (0.3-1.2); Total Protein 7.5 d/dL (6.2-8.2)
== END | disposition home or self-care (01) ==
LOC: LABPAT 11:40
PROVIDERS: ATTEND Thoracic Surgery (Cardiothoracic Vascular Surgery)
DX: I25.10 Atherosclerotic heart disease of native coronary artery without angina pectoris (principal)
CPT/HCPCS: 80053; 85027; 85610; 85730

== ENCOUNTER → 2022-12-19 | Outpatient (CLI) | payer MEDICARE ==
--- NOTE | 2022-12-19 16:19 | XR ---
EXAMINATION TYPE: XR chest 2V DATE OF EXAM: 12/19/2022 2:35 PM COMPARISON: Chest radiographs from 12/04/2022 TECHNIQUE: XR chest 2V Frontal and lateral views of the chest. CLINICAL INDICATION:Male, 72 years old with history of J91.8 Left pleural effusion; FINDINGS: Lungs/Pleura: There is no evidence of pleural effusion, focal consolidation, or pneumothorax. Pulmonary vascularity: Unremarkable. Heart/mediastinum: Cardiomediastinal silhouette is enlarged and stable. Left atrial appendage occlusi on device is present. Musculoskeletal: No acute osseous pathology. Midline sternotomy wires are noted. IMPRESSION: Stable exam no evidence for acute process. Trace bilateral pleural effusions remain.
== END | disposition home or self-care (01) ==
LOC: RADXRMAIN 13:58
PROVIDERS: ATTEND Internal Medicine Interventional Cardiology
DX: J91.8 Pleural effusion in other conditions classified elsewhere (principal)
CPT/HCPCS: 71046

== ENCOUNTER → 2023-02-20 | Outpatient (CLI) | payer MEDICARE ==
[2023-02-20 16:19] LABS: Appearance,Urine Clear (Clear); Bilirubin,Urine Negative (Negative); Blood,Urine Negative (Negative); Color,Urine Yellow (Yellow); Ketones,Urine Negative (Negative); Nitrite,Urine Negative (Negative); Specific Gravity,Urine 1.016 (1.001-1.030); Urobilinogen,Urine 0.2 E.U./DL
[2023-02-20 16:25] LABS: Bacteria,Urine None Seen (None Seen)
[2023-02-20 16:26] LABS: BUN/Creat Ratio 16.41 Ratio (12.00-20.00); Blood Urea Nitrogen 27.9 mg/dL (9.0-27.0); Calcium 10.1 mg/dL (8.7-10.3); Carbon Dioxide 26.4 mmol/L (21.6-31.8); Chloride 103 mmol/L (96-109); Glucose 210 mg/dL (70-110); Magnesium 2.1 mg/dL (1.5-2.4); Phosphorus 3.8 mg/dL (2.4-5.1); Potassium 4.3 mmol/L (3.5-5.5); Sodium 141 mmol/L (135-145)
[2023-02-21 01:07] LABS: Creatinine,Urine Random 24.4 mg/dL (39.0-259.0); Protein/Creatinine Ratio,Urine 2.238 Ratio
== END | disposition home or self-care (01) ==
LOC: LABWHC1 08:31
PROVIDERS: ATTEND Internal Medicine Nephrology
DX: E55.9 Vitamin D deficiency, unspecified (principal); N25.81 Secondary hyperparathyroidism of renal origin; N39.0 Urinary tract infection, site not specified; N02.2 Recurrent and persistent hematuria with diffuse membranous glomerulonephritis; R80.9 Proteinuria, unspecified
CPT/HCPCS: 36415; 80048; 80197; 81001; 82306; 82570; 83735; 83970; 84100; 84156

== ENCOUNTER → 2023-05-17 | Outpatient (CLI) | payer MEDICARE ==
--- NOTE | 2023-05-17 15:40 | P.PCN ---
Preoperative Diagnosis: DATE: 05/17/2023 FOLLOW UP VISIT. Patient with obstructive sleep apnea hypopnea syndrome return to sleep center for follow-up visit. Information from previous visit have been reviewed. Patient is using PAP equipment every night for the whole night, getting PAP supplies in time. The patient does not have significant problems with the mask, PAP unit and humidification. Hastings sleepiness scale is 5, which is normal. I checked information from PAP unit. PAP unit pressure 5-8, average 7.8 cm H2O. Usage is 100 % for more then 4 hours, average 5 hours per night. Leak is 5 l/m, which is in acceptable range. Apnea Hypopnea Index is 0.3, which is normal. MEDICATIONS:1. Amlodipine 5 mg twice a day 2. Ezetimibe 10 mg once a day 3. Januvia 100 mg once a day 4. Farxiga 5 mg once a day During physical exam: GENERAL: A pleasant patient without any distress. VITAL SIGNS: BP 137/76, HR 63, RR 20, weight 184.8, temperature 97.7, oxygen saturation at room air 96 % . HEENT: PERRLA, EOMI.low position of soft palate, Mallapati 4 . NECK: Supple. No JVD. LUNGS: Clear to percussion and to auscultation. Good air exchange. No wheezing or rhonchi. HEART: S1, S2 regular. ABDOMEN: Soft and nontender.[] EXTREMITIES: No clubbing or cyanosis. DATABASE ARCHITECT: Awake, alert, and oriented x3. No focal deficit. Impressions: 1. Obstructive sleep apnea-hypopnea syndrome. Patient demonstrated great compliance with treatment, benefiting from treatment. 2. Hypertension. 3. Coronary artery disease, status post CABG in November 2022. 4. History of stroke about 2-1/2 years ago without residual deficit. 5. History of asthma. 6. Hyperlipidemia. 7. Diabetes mellitus. 8. Increased eye pressure. 9. ALLERGIES. Plan: 1. Continue using PAP equipment every night for the whole night. 2. To change air filter at least 1-2 times per month. 3. PAP unit should stay lower then position of the head. 4. Advised patient to remove all remaining water from humidifier canister daily and make it dry after each usage. Refill canister with fresh distilled water before each usage. 5. Sleep hygiene with regular time in bed for at least 8 hours. 6. Precautions related to driving. No driving if feel any sleepiness. 7. I will maintain prescription for PAP supplies including mask, tube, filters. 8. Watching weight. 9. Follow up visit in 6 months or earlier if patient has any problems. Thank you very much for allowing me to participate in the management of your patient. Mike Angulo MD, PhD, FAASM. Diplomat of [employer], Sleep Medicine Board by [employer] Numerical Control Machine Tool Operator of [facility] [place]
== END ==
LOC: SLEEP 15:00
PROVIDERS: ATTEND Internal Medicine
DX: G47.33 Obstructive sleep apnea (adult) (pediatric) (principal); I10 Essential (primary) hypertension; E11.9 Type 2 diabetes mellitus without complications; I25.10 Atherosclerotic heart disease of native coronary artery without angina pectoris; J45.909 Unspecified asthma, uncomplicated; E78.5 Hyperlipidemia, unspecified; Z86.73 Personal history of transient ischemic attack (TIA), and cerebral infarction without residual deficits; Z95.1 Presence of aortocoronary bypass graft; H40.051 Ocular hypertension, right eye; Z99.89 Dependence on other enabling machines and devices; Z79.82 Long term (current) use of aspirin; Z79.899 Other long term (current) drug therapy; Z87.891 Personal history of nicotine dependence; Z79.84 Long term (current) use of oral hypoglycemic drugs
CPT/HCPCS: 99212

== ENCOUNTER → 2023-09-28 | Outpatient (CLI) | payer MEDICARE ==
[2023-09-28 10:24] LABS: Basophils # (A) 0.07 X 10*3/uL (0.00-0.10); Basophils % (A) 0.9 %; Eosinophils # (A) 0.42 X 10*3/uL (0.04-0.35); Eosinophils % (A) 5.3 %; HCT 52.6 % (39.6-50.0); HGB 17.2 g/dL (13.0-17.0); Lymphocytes # (A) 1.98 X 10*3/uL (0.90-5.00); MCH 29.2 pg (27.0-32.0); MCHC 32.7 g/dL (32.0-37.0); MCV 89.3 FL (80.0-97.0); Mean Platelet Volume 11.6 FL (9.5-12.2); Monocytes # (A) 1.11 X 10*3/uL (0.20-1.00); NRBC Per 100 WBC 0 X 10*3/uL (0.00-0.01); Neutrophils # (A) 4.32 X 10*3/uL (1.80-7.70); Neutrophils % (A) 54.5 %; Platelet Count 168 X 10*3/uL (140-440); RBC 5.89 X 10*6/uL (4.40-5.60); RDW 13.3 % (11.5-14.5); WBC 7.92 X 10*3/uL (4.50-10.00)
[2023-09-28 11:04] LABS: ALT 45 U/L (10-49); AST 29 U/L (14-35); Albumin 4.4 g/dL (3.8-4.9); Albumin/Globulin Ratio 1.69 Ratio (1.60-3.17); Alkaline Phosphatase 57 U/L (41-126); BUN/Creat Ratio 19.89 Ratio (12.00-20.00); Blood Urea Nitrogen 35.8 mg/dL (9.0-27.0); Calcium 10.6 mg/dL (8.7-10.3); Carbon Dioxide 23.4 mmol/L (21.6-31.8); Chloride 103 mmol/L (96-109); Chol/HDL Ratio 2.31 Ratio; Globulin 2.6 g/dL (1.6-3.3); Glucose 144 mg/dL (70-110); LDL Cholesterol,Calculated 33.4 mg/dL (0.0-131.0); Potassium 4.9 mmol/L (3.5-5.5); Sodium 140 mmol/L (135-145); Total Bilirubin 0.6 mg/dL (0.3-1.2)
== END | disposition home or self-care (01) ==
LOC: LABWHC1 06:51
PROVIDERS: ATTEND Internal Medicine
DX: E11.9 Type 2 diabetes mellitus without complications (principal); E21.3 Hyperparathyroidism, unspecified; I10 Essential (primary) hypertension; E78.00 Pure hypercholesterolemia, unspecified; E55.9 Vitamin D deficiency, unspecified
CPT/HCPCS: 36415; 80053; 80061; 82043; 82306; 82570; 83036; 84443; 85025

== ENCOUNTER → 2023-10-05 | Outpatient (CLI) | payer MEDICARE ==
[2023-10-05 14:59] LABS: Basophils # (A) 0.07 X 10*3/uL (0.00-0.10); Basophils % (A) 0.9 %; Eosinophils # (A) 0.31 X 10*3/uL (0.04-0.35); HCT 50.9 % (39.6-50.0); HGB 16.5 g/dL (13.0-17.0); Lymphocytes # (A) 1.84 X 10*3/uL (0.90-5.00); Lymphocytes % (A) 23.7 %; MCH 28.6 pg (27.0-32.0); MCHC 32.4 g/dL (32.0-37.0); MCV 88.2 FL (80.0-97.0); Mean Platelet Volume 11.2 FL (9.5-12.2); Monocytes # (A) 1.03 X 10*3/uL (0.20-1.00); Monocytes % (A) 13.3 %; NRBC Per 100 WBC 0 X 10*3/uL (0.00-0.01); Neutrophils # (A) 4.49 X 10*3/uL (1.80-7.70); Platelet Count 174 X 10*3/uL (140-440); RBC 5.77 X 10*6/uL (4.40-5.60); RDW 13.6 % (11.5-14.5); WBC 7.75 X 10*3/uL (4.50-10.00)
== END | disposition home or self-care (01) ==
LOC: LABWHC1 08:20
PROVIDERS: ATTEND Internal Medicine
DX: N18.4 Chronic kidney disease, stage 4 (severe) (principal); E21.3 Hyperparathyroidism, unspecified
CPT/HCPCS: 36415; 82310; 83970; 85025

== ENCOUNTER → 2024-01-03 | Outpatient (CLI) | payer MEDICARE | LOC: 3 N SLEEP 16:30 | PROVIDERS: ATTEND Internal Medicine | CPT/HCPCS: 99212 ==

== ENCOUNTER → 2024-01-23 | Outpatient (CLI) | payer MEDICARE ==
[2024-01-23 10:36] LABS: Basophils # (A) 0.05 X 10*3/uL (0.00-0.10); Basophils % (A) 0.6 %; Eosinophils # (A) 0.25 X 10*3/uL (0.04-0.35); HCT 52.4 % (39.6-50.0); HGB 17.1 g/dL (13.0-17.0); Lymphocytes # (A) 2.07 X 10*3/uL (0.90-5.00); Lymphocytes % (A) 25.1 %; MCH 29.4 pg (27.0-32.0); MCHC 32.6 g/dL (32.0-37.0); Mean Platelet Volume 11.3 FL (9.5-12.2); Monocytes # (A) 1.03 X 10*3/uL (0.20-1.00); Monocytes % (A) 12.5 %; NRBC Per 100 WBC 0 X 10*3/uL (0.00-0.01); Neutrophils # (A) 4.81 X 10*3/uL (1.80-7.70); Neutrophils % (A) 58.4 %; Platelet Count 178 X 10*3/uL (140-440); RBC 5.82 X 10*6/uL (4.40-5.60); RDW 12.6 % (11.5-14.5); WBC 8.24 X 10*3/uL (4.50-10.00)
[2024-01-23 10:42] LABS: Urine Creatinine 74.2 mg/dL (39.0-259.0)
[2024-01-23 10:56] LABS: ALT 52 U/L (10-49); AST 35 U/L (14-35); Albumin 4.3 g/dL (3.8-4.9); Albumin/Globulin Ratio 1.59 Ratio (1.60-3.17); Alkaline Phosphatase 50 U/L (41-126); BUN/Creat Ratio 24.24 Ratio (12.00-20.00); Blood Urea Nitrogen 41.2 mg/dL (9.0-27.0); Calcium 10.3 mg/dL (8.7-10.3); Chloride 103 mmol/L (96-109); Chol/HDL Ratio 2.58 Ratio; Globulin 2.7 g/dL (1.6-3.3); Glucose 162 mg/dL (70-110); LDL Cholesterol,Calculated 28.5 mg/dL (0.0-131.0); Potassium 4.9 mmol/L (3.5-5.5); Sodium 138 mmol/L (135-145); Total Bilirubin 0.8 mg/dL (0.3-1.2)
== END | disposition home or self-care (01) ==
LOC: LABWHC1 07:48
PROVIDERS: ATTEND Internal Medicine
DX: E11.9 Type 2 diabetes mellitus without complications (principal); I10 Essential (primary) hypertension; R53.83 Other fatigue; E78.00 Pure hypercholesterolemia, unspecified; E55.9 Vitamin D deficiency, unspecified
CPT/HCPCS: 36415; 80053; 80061; 82043; 82306; 82570; 83036; 84443; 85025

== ENCOUNTER 2024-08-04 11:46 | Emergency (ER) | payer MEDICARE ==
[2024-08-04 12:04] VITALS: BP 175/100; TEMP 97.5
--- NOTE | 2024-08-04 12:11 | ED ---
SOB HPI - General Source: patient, RN notes reviewed Mode of arrival: ambulatory Limitations: no limitations - History of Present Illness MD Complaint: shortness of breath, cough <Dede Desir - Last Filed: 08/04/24 12:09> - General Source: patient, family, RN notes reviewed, old records reviewed <Hung Kearns - Last Filed: 08/04/24 20:47> - General Chief Complaint: Shortness of Breath Stated Complaint: referal- SOB, cough, Time Seen by Provider: 08/04/24 11:55 - History of Present Illness Initial Comments: Quick Note: This is a 74-year-old male who presents to the emergency department for shortness of breath. States that he has been sick for the last month and on antibiotics and steroids, but is not getting any relief. He is now using nebulizer treatments, but states that he has to use them at least every 3 hours in order to be able to breathe. He went to see his PCP today and she was conc erned about his breathing and he was advised to come here for further evaluation. (Dede Desir) Patient is a 74-year-old male who presents emergency department with URI sympt oms ongoing for multiple days. Patient has been having sick symptoms for approximately 1 month. Has intermittently gotten better but now is getting worse over the last 1 to 2 weeks. Completed course of steroids as well as antibiotics last week. However he is still coughing and required more frequent breathing treatments which prompted him to show up to his PCP and contact them today. They recommended he come to the ER for further evaluation. He has a history of CABG, multiple cardiac stents, diabetes, hypertension, hyperlipidemia. Also history of CKD. States his blood sugars have been more elevated than normal around 168. States he is having a productive cough throughout the day of a clear gayle sputum. Denies chest pain. Denies nausea or vomiting or diarrhea. Denies any fevers or chills. Presents for further evaluation at this time. Was a remote smoker, having smoked tobacco products approximately 30 years ago for over 10 years. Has not smoked since. Was only recently placed on a nebulizer machine, with no recent nebulization. States having increased shortness of breath with laying down due to coughing getting worse. Improved when sitting up. Denies any lower extremity edema. Denies any weight gain. Is not on blood thinners. Is not on diuretics. Seen as a quick note and I evaluated the patient when he was placed in a hallway bed. (Hung Kearns) - Related Data Home Medications Medication Instructions Recorded Confirmed Brimonidine Tartrate/Timolol 1 drop BOTH EYES BID 12/23/15 08/04/24 [Combigan 0.2%-0.5% Eye Drops] Latanoprost/Pf [Latanoprost 0.005% 1 drop BOTH EYES HS 12/19/19 08/04/24 Eye Drop] Dapagliflozin Propanediol [Farxiga] 5 mg PO HS 08/14/22 08/04/24 Ergocalciferol (Vitamin D2) 1,250 mcg PO Q7D 08/14/22 08/04/24 [Drisdol (50,000 Iu)] Ezetimibe [Zetia] 10 mg PO HS 08/14/22 08/04/24 Rosuvastatin [Crestor] 20 mg PO HS 08/14/22 08/04/24 Clopidogrel [Plavix] 75 mg PO HS 08/21/22 08/04/24 Multivitamins, Thera [Multivitamin 1 tab PO DAILY 08/21/22 08/04/24 (formulary)] Aspirin 81 mg PO DAILY 10/29/22 08/04/24 Ferrous Sulfate [Iron (65 MG 325 mg PO DAILY 10/29/22 08/04/24 Elemental)] Albuterol Nebulized [Ventolin 2.5 mg INHALATION RT-Q6H PRN 08/04/24 08/04/24 Nebulized] Albuterol Sulfate [Ventolin HFA] 1 puff INHALATION RT-QID PRN 08/04/24 08/04/24 Doxycycline Hyclate 100 mg PO BID 08/04/24 08/04/24 Fexofenadine HCl [Nina Allergy] 180 mg PO HS 08/04/24 08/04/24 Metoprolol Tartrate [Lopressor] 25 mg PO HS 08/04/24 08/04/24 Metoprolol Tartrate [Lopressor] 50 mg PO DAILY 08/04/24 08/04/24 Semaglutide [Ozempic] 1 mg SQ WE 08/04/24 08/04/24 Tacrolimus [Prograf] 0.5 mg PO BID 08/04/24 08/04/24 lisinopriL [Zestril] 5 mg PO HS 08/04/24 08/04/24 Previous Rx's Medication Instructions Recorded Albuterol Nebulized [Ventolin 2.5 mg INHALATION Q4H 8 Days #150 08/04/24 Nebulized] ml Amoxic-Pot Clav 875-125Mg 1 tab PO Q12HR 7 Days #14 tab 08/04/24 [Augmentin 875-125] predniSONE [Deltasone] 20 mg PO DAILY 4 Days #4 tab 08/04/24 Allergies Allergy/AdvReac Type Severity Reaction Status Date / Time No Known Allergies Allergy Verified 08/04/24 14:04 Review of Systems ROS Other: All systems not noted in ROS Statement are negative. <Dede Desir - Last Filed: 08/04/24 12:09> ROS Other: All systems not noted in ROS Statement are negative. <Hung Kearns - Last Filed: 08/04/24 20:47> ROS Statement: Those systems with pertinent positive or pertinent negative responses have been documented in the HPI. Review of Systems: CONST: Denies fever EYES: Denies blurry vision ENT: Endorses nasal congestion C/V: Denies Chest pain RESP: Endorses cough, congestion GI: Denies abdominal pain : Denies dysuria SKIN: Denies rash. MSK: Denies joint pain. NEURO: Denies headache (Hung Kearns) Past Medical History Past Medical History: Coronary Artery Disease (CAD), Chest Pain / Angina, Diabetes Mellitus, Eye Disorder, Hyperlipidemia, Hypertension, Renal Disease, Sleep Apnea/CPAP/BIPAP Additional Past Medical History / Comment(s): NIDDM type II, neuropathy bilateral feet, pancreatitis x2, FORREST with CPAP,glaucoma, sees kidney dr History of Any Multi-Drug Resistant Organisms: None Reported Past Surgical History: Heart Catheterization With Stent, Tonsillectomy Additional Past Surgical History / Comment(s): PCI with stent in LAD/RCA, cardiac angioplasty in , bilateral laser eye surgery for glaucoma, colonoscopy, heart catheterization with stent February 2022 in [facility], [facility] Past Anesthesia/Blood Transfusion Reactions: No Reported Reaction Additional Past Anesthesia/Blood Transfusion Reaction / Comment(s): no blood tx hx Date of Last Stent Placement:: 08/15/2022 Past Psychological History: No Psychological Hx Reported Smoking Status: Former smoker Past Alcohol Use History: Occasional Past Drug Use History: None Reported - Past Family History Father Family Medical History: Cancer Additional Family Medical History / Comment(s): Leukemia Mother Family Medical History: Diabetes Mellitus Brother(s) Additional Family Medical History / Comment(s): His brother had severe heart disease and was on the heart transplant list in his 40s <Dede Desir - Last Filed: 08/04/24 12:09> General Exam Limitations: no limitations <Dede Desir - Last Filed: 08/04/24 12:09> <Hung Kearns - Last Filed: 08/04/24 20:47> - General Exam Comments Initial Comments: Visual Physical Exam Vital signs reviewed General: Well-appearing, nontoxic, no acute distress. Head: Normocephalic, atraumatic Eyes: PERRLA, EOMI ENT: Airway patent Chest: Nonlabored breathing Skin: No visual rash, normal skin tone Neuro: Alert and oriented 3 Musculoskeletal: No gross abnormalities (Dede Desir) General: Appears in no acute distress. Respiratory distress. Resting comfortably. Afebrile HEAD: Normal with no signs of head trauma. EYES: PERRLA, EOMI, conjunctiva normal, no discharge. ENT: Hearing grossly intact, normal oropharynx. RESPIRATORY: Bilateral end expiratory wheezing. No significant increased work of breathing. Mild hypoxia to 92% on room air. C/V: Regular rate and rhythm. S1 and S2 auscultated, no edema, peripheral pulses 2+ and intact throughout ABD: Abd is soft, nontender, nondistended EXT: Normal range of motion, no obvious deformity SKIN: No rashes or lesions observed on exposed skin. NEURO: Alert and oriented x 4. No focal deficits. (Hung Kearns) Course Vital Signs 08/04/24 08/04/24 08/04/24 12:00 14:31 14:47 Temperature 97.5 F L Pulse Rate 74 76 80 Respiratory 18 Rate Blood Pressure 175/100 O2 Sat by Pulse 92 L Oximetry 08/04/24 15:11 Temperature Pulse Rate 84 Respiratory 20 Rate Blood Pressure O2 Sat by Pulse 95 Oximetry Medical Decision Making <Dede Desir Last Filed: 08/04/24 12:09> - Lab Data Result diagrams: 08/04/24 12:52 08/04/24 12:52 - EKG Data -: EKG Interpreted by Me <Hung Kearns - Last Filed: 08/04/24 20:47> - Medical Decision Making I performed the QuickNote portion of this chart. Signed Dede Desir PA-C. (Dede Desir) Was pt. sent in by a medical professional or institution (BERNARDO Méndez, AGRICULTURAL AND FORESTRY SUPERVISOR, urgent care, hospital, or group home...) When possible be specific @ -No Did you speak to anyone other than the patient for history (EMS, parent, family, police, friend...)? What history was obtained from this source @ -No Did you review nursing and triage notes (agree or disagree)? Why? @ -I reviewed and agree with nursing and triage notes Were old charts reviewed (outside hosp., previous admission, EMS record, old EKG, old radiological studies, urgent care reports/EKG's, group home records)? Report findings @ -Prior EKG from November 2023 with no significant change when compared with today's EKG. Differential Diagnosis (chest pain, altered mental status, abdominal pain women, abdominal pain men, vaginal bleeding, weakness, fever, dyspnea, syncope, headache, dizziness, GI bleed, back pain, seizure, CVA, palpatations, mental health, musculoskeletal)? @ -Bronchitis, pneumonia, COVID, flu, RSV. This list is not all inclusive EKG interpreted by me (3pts min.). @ -As above X-rays interpreted by me (1pt min.). @ -Chest x-ray reveals no obvious acute cardiopulmonary process. CT interpreted by me (1pt min.). @ -None done U/S interpreted by me (1pt. min.). @ -None done What testing was considered but not performed or refused? (CT, X-rays, U/S, labs)? Why? @ -None What meds were considered but not given or refused? Why? @ -None Did you discuss the management of the patient with other professionals (professionals i.e. , BERNARDO, AGRICULTURAL AND FORESTRY SUPERVISOR, lab, RT, psych nurse, social service agency director, manager gallery, teacher, bank officer, caseworker intake)? Give summary @ -No Was smoking cessation discussed for >3mins.? @ -No Was critical care preformed (if so, how long)? @ -No Were there social determinants of health that impacted care today? How? (Homelessness, low income, unemployed, alcoholism, drug addiction, transportation, low edu. Level, literacy, decrease access to med. care, penitentiary, rehab)? @ -No Was there de-escalation of care discussed even if they declined (Discuss DNR or withdrawal of care, Hospice)? DNR status @ -No What co-morbidities impacted this encounter? (DM, HTN, Smoking, COPD, CAD, Cancer, CVA, ARF, Chemo, Hep., AIDS, mental health diagnosis, sleep apnea, morbi d obesity)? @ -None Was patient admitted / discharged? Hospital course, mention meds given and rout e, prescriptions, significant lab abnormalities, going to OR and other pertinent info. @ -Patient presents with what seems like infectious symptoms. Patient is wheezy. Has been using breathing treatments at home without much relief. Vitals are relatively normal with very mild hypoxia. Will continue to monitor. Patient was seen multiple breathing treatments, IV fluids. We will obtain cardiopulmonary workup with his CABG history and his PCP wanted his heart checked out. Clinically does not appear to be CHF. Patient is wheezing and I believe this is likely infectious versus reactive airway disease. Probably has some degree of COPD or emphysema considering he does have a remote history of tobacco use. Workup started as a quick note. I evaluated the patient in a hallway bed. He was in agreement this plan. EKG shows no signs of acute ischemia. Chest x-ray reveals no evidence of pneumonia.Laboratory studies returned for chronically elevated hemoglobin of 18.2. Mild leukocytosis of 10.8. Improved CKD with BUN of 43 and creatinine of 1.52. Troponin is nonelevated. BNP within normal limits. Viral swabs negative. I discussed results with the patient. He is feeling proved following breathing treatment. Discussed that he likely has tracheobronchitis as possible reactive airway disease. I will refill his prescription for nebulizer albuterol solution, and will place patient on prednisone and will be started on a different antibiotic, Augmentin. Also, dose of Rocephin prior to discharge. He was in agreement this plan. He will follow-up with his PCP Dr. Espinal. Strict return precautions discussed. Vital signs within acceptable limits. No significant hypoxia following breathing treatments. Vitals are within acceptable limits. I will provide the patient with a prescription for prednisone, albuterol, Augmentin. I instructed the patient to follow up with their PCP in the next 1-3 days.. I explained that the patient should return to the emergency department if they experience any worsening symptoms. Strict return precautions were discussed with the patient. The patient expressed understanding of these instructions. I answered all questions that the patient had. The patient was discharged home in good condition with their prescriptions and follow up information. Undiagnosed new problem with uncertain prognosis? @ -No Drug Therapy requiring e monitoring for toxicity (Heparin, Nitro, Insulin, Cardizem)? @ -No Were any procedures done? @ -No Diagnosis/symptom? @ -Tracheobronchitis, reactive airway disease Acute, or Chronic, or Acute on Chronic? @ -Acute Uncomplicated (without systemic symptoms) or Complicated (systemic symptoms)? @ -Uncomplicated Side effects of treatment? @ -None Exacerbation, Progression, or Severe Exacerbation] @ -No Poses a threat to life or bodily function? @ -Unlikely at this time (Hung Kearns) - Lab Data Lab Results 08/04/24 08/04/24 08/04/24 Range/Units 12:52 12:52 12:52 WBC 10.8 H (3.8-10.6) k/uL RBC 6.21 H (4.30-5.90) m/uL Hgb 18.2 H (13.0-17.5) gm/dL Hct 55.3 H (39.0-53.0) % MCV 89.0 (80.0-100.0) fL MCH 29.2 (25.0-35.0) pg MCHC 32.8 (31.0-37.0) g/dL RDW 13.1 (11.5-15.5) % Plt Count 188 (150-450) k/uL MPV 8.5 Neutrophils % 63 % Lymphocytes % 17 % Monocytes % 10 % Eosinophils % 8 % Basophils % 1 % Neutrophils # 6.8 (1.3-7.7) k/uL Lymphocytes # 1.9 (1.0-4.8) k/uL Monocytes # 1.1 H (0-1.0) k/uL Eosinophils # 0.8 H (0-0.7) k/uL Basophils # 0.1 (0-0.2) k/uL PT 11.0 (10.0-12.5) sec INR 1.0 (<1.2) APTT 23.6 (22.0-30.0) sec Sodium 136 L (137-145) mmol/L Potassium 4.9 (3.5-5.1) mmol/L Chloride 104 (98-107) mmol/L Carbon Dioxide 20 L (22-30) mmol/L Anion Gap 12 mmol/L BUN 43 H (9-20) mg/dL Creatinine 1.52 H (0.66-1.25) mg/dL Est GFR (CKD-EPI)AfAm 52 (>60 ml/min/1.73 sqM) Est GFR (CKD-EPI)NonAf 45 (>60 ml/min/1.73 sqM) Glucose 123 H (74-99) mg/dL Plasma Lactic Acid Hiram (0.7-2.0) mmol/L Calcium 11.1 H (8.4-10.2) mg/dL Magnesium 2.1 (1.6-2.3) mg/dL Total Bilirubin 1.0 (0.2-1.3) mg/dL AST 30 (17-59) U/L ALT 39 (4-49) U/L Alkaline Phosphatase 56 (38-126) U/L Troponin I (0.000-0.034) ng/mL NT-Pro-B Natriuret Pep 175 pg/mL Total Protein 7.3 (6.3-8.2) g/dL Albumin 4.2 (3.5-5.0) g/dL Influenza Type A (PCR) (Not Detectd) Influenza Type B (PCR) (Not Detectd) RSV (PCR) (Not Detectd) SARS-CoV-2 (PCR) (Not Detectd) 08/04/24 08/04/24 08/04/24 Range/Units 12:52 12:52 12:52 WBC (3.8-10.6) k/uL RBC (4.30-5.90) m/uL Hgb (13.0-17.5) gm/dL Hct (39.0-53.0) % MCV (80.0-100.0) fL MCH (25.0-35.0) pg MCHC (31.0-37.0) g/dL RDW (11.5-15.5) % Plt Count (150-450) k/uL MPV Neutrophils % % Lymphocytes % % Monocytes % % Eosinophils % % Basophils % % Neutrophils # (1.3-7.7) k/uL Lymphocytes # (1.0-4.8) k/uL Monocytes # (0-1.0) k/uL Eosinophils # (0-0.7) k/uL Basophils # (0-0.2) k/uL PT (10.0-12.5) sec INR (<1.2) APTT (22.0-30.0) sec Sodium (137-145) mmol/L Potassium (3.5-5.1) mmol/L Chloride (98-107) mmol/L Carbon Dioxide (22-30) mmol/L Anion Gap mmol/L BUN (9-20) mg/dL Creatinine (0.66-1.25) mg/dL Est GFR (CKD-EPI)AfAm (>60 ml/min/1.73 sqM) Est GFR (CKD-EPI)NonAf (>60 ml/min/1.73 sqM) Glucose (74-99) mg/dL Plasma Lactic Acid Hiram 1.4 (0.7-2.0) mmol/L Calcium (8.4-10.2) mg/dL Magnesium (1.6-2.3) mg/dL Total Bilirubin (0.2-1.3) mg/dL AST (17-59) U/L ALT (4-49) U/L Alkaline Phosphatase (38-126) U/L Troponin I 0.016 (0.000-0.034) ng/mL NT-Pro-B Natriuret Pep pg/mL Total Protein (6.3-8.2) g/dL Albumin (3.5-5.0) g/dL Influenza Type A (PCR) Not Detected (Not Detectd) Influenza Type B (PCR) Not Detected (Not Detectd) RSV (PCR) Not Detected (Not Detectd) SARS-CoV-2 (PCR) Not Detected (Not Detectd) - EKG Data EKG Comments: 12-lead Electrocardiogram Interpretation Note EKG was reviewed and interpreted by myself. 12-lead ECG performed at 1241 is interpreted by me as revealing normal sinus rhythm at a rate of 79 beats per minute. [place] is normal. HI interval is 183 ms, QRS durations 85 ms, QTc is 373 ms. Patient does have PVCs present.. There were no ST or T wave abnormalities to suggest myocardial ischemia or injury. R wave progression across the precordium was satisfactory. By my interpretation this EKG is non-diagnostic for acute ischemia. Compared with EKG from November 2022 with no significant change. (Hung Kearns) Disposition <Dede Desir - Last Filed: 08/04/24 12:09> Is patient prescribed a controlled substance at d/c from ED?: No Time of Disposition: 15:40 <Hung Kearns - Last Filed: 08/04/24 20:47> Clinical Impression: Tracheobronchitis, Reactive airway disease Disposition: HOME SELF-CARE Condition: Good Instructions (If sedation given, give patient instructions): Acute Bronchitis (ED) Additional Instructions: You are diagnosed today as tracheobronchitis. Likely a viral infection however we will prescribe you antibiotics in addition to prednisone 20 mg daily for the next 4 days. Continue therapy with your DuoNeb breathing treatment. Your workup today was unremarkable. Your GFR is 45 and overall improved. Your viral swabs are negative. Your hemoglobin is elevated to 18.2, however it has been elevated in the past and recently. Follow-up with your PCP in the next 1 to 3 days. Return if any worsening symptoms. As we discussed, it is possible you have mild undiagnosed COPD, and if URIs become recurrent symptoms, I would recommend follow-up with a spiral winding machine helper. I will provide you with contact information for 1 however you can go through Dr. Bazan if you desire. Prescriptions: Amoxic-Pot Clav 875-125Mg [Augmentin 875-125] 1 tab PO Q12HR 7 Days #14 tab predniSONE [Deltasone] 20 mg PO DAILY 4 Days #4 tab Albuterol Nebulized [Ventolin Nebulized] 2.5 mg INHALATION Q4H 8 Days #150 ml Referrals: Shilpa Bazan MD [Primary Care Provider] - 1-2 days Gualberto Lantigua DO [Doctor of Osteopathic Medicine] - 1-2 days
--- NOTE | 2024-08-04 12:38 | XR ---
EXAMINATION TYPE: XR chest 2V DATE OF EXAM: 08/04/2024 12:26 PM COMPARISON: Chest radiographs 12/19/2022. From CLINICAL INDICATION: Male, 74 years old with history of difficulty breathing; [facility] TECHNIQUE: XR chest 2V Frontal and lateral views of the chest. FINDINGS: Lungs/Pleura: There is no evidence of pleural effusion, focal consolidation, or pneumothorax. Pulmonary vascularity: Unremarkable. Heart/mediastinum: Cardiomediastinal silhouette is unremarkable. Left atrial appendage occlusion lacy ce is present. Musculoskeletal: No acute osseous pathology. Midline sternotomy wires are noted. Other findings: None IMPRESSION: No acute cardiopulmonary disease/process. [facility], , 08/04/2024 12:36 PM
[2024-08-04 12:57] LABS: Basophils # (A) 0.1 k/uL (0-0.2); Basophils % (A) 1 %; Eosinophils # (A) 0.8 k/uL (0-0.7); Eosinophils % (A) 8 %; HGB 18.2 gm/dL (13.0-17.5); Lymphocytes # (A) 1.9 k/uL (1.0-4.8); Lymphocytes % (A) 17 %; MCH 29.2 pg (25.0-35.0); MCHC 32.8 g/dL (31.0-37.0); Mean Platelet Volume 8.5; Monocytes # (A) 1.1 k/uL (0-1.0); Monocytes % (A) 10 %; Neutrophils # (A) 6.8 k/uL (1.3-7.7); Neutrophils % (A) 63 %; Platelet Count 188 k/uL (150-450); RBC 6.21 m/uL (4.30-5.90); RDW 13.1 % (11.5-15.5); WBC 10.8 k/uL (3.8-10.6)
[2024-08-04 13:09] LABS: Partial Thromboplastin Time 23.6 sec (22.0-30.0)
[2024-08-04] MEDS: SODIUM CHLORIDE 0.9% 500 ML 500 ML IV ONE (13:11)
[2024-08-04 13:12] LABS: ALT 39 U/L (4-49); AST 30 U/L (17-59); African American GFR (CKD) 52 (>60 ml/min/1.73 sqM); Albumin 4.2 g/dL (3.5-5.0); Alkaline Phosphatase 56 U/L (38-126); Anion Gap 12 mmol/L; Blood Urea Nitrogen 43 mg/dL (9-20); Calcium 11.1 mg/dL (8.4-10.2); Carbon Dioxide 20 mmol/L (22-30); Chloride 104 mmol/L (98-107); Glucose 123 mg/dL (74-99); Magnesium 2.1 mg/dL (1.6-2.3); Non-African American GFR(CKD) 45 (>60 ml/min/1.73 sqM); Potassium 4.9 mmol/L (3.5-5.1); Sodium 136 mmol/L (137-145); Total Protein 7.3 g/dL (6.3-8.2)
[2024-08-04 13:21] LABS: NT-Pro-B-Type Natriuretic Pept 175 pg/mL
[2024-08-04 13:27] LABS: HCT 55.3 % (39.0-53.0)
[2024-08-04 13:32] LABS: Influenza A Not Detected (Not Detectd); Influenza B Not Detected (Not Detectd); RSV Not Detected (Not Detectd)
[2024-08-04] MEDS: IPRATROPIUM-ALBUTEROL 3 ML NEB INHALATION STA (14:28)
[2024-08-04 15:13] VITALS: PULSE 84; RESP 20
[2024-08-04] MEDS: AMOXIC-POT CLAV 875-125MG 1 EACH TAB PO STA (15:44)
[2024-08-04] MEDS: predniSONE 20 MG TAB PO STA (15:44)
[2024-08-04] MEDS: cefTRIAXone IN SWFI 1,000 MG/10 ML SYRINGE IVP STA (15:45)
== END 2024-08-04 15:56 | disposition home or self-care (01) ==
LOC: EC 11:46
DX: J40 Bronchitis, not specified as acute or chronic (principal); Z87.891 Personal history of nicotine dependence
CPT/HCPCS: 36415; 94640; 93005; 83880; 80053; 83605; 83735; 84484; 85025; 85610; 85730; 87636; 71046; 99285; 96374; J0696; J7512

== ENCOUNTER → 2024-09-15 | Outpatient (CLI) | payer MEDICARE ==
[2024-09-15 15:01] LABS: Basophils % (A) 1.1 %; Eosinophils # (A) 0.38 X 10*3/uL (0.04-0.35); Eosinophils % (A) 4.1 %; HCT 54.6 % (39.6-50.0); Lymphocytes # (A) 1.47 X 10*3/uL (0.90-5.00); Lymphocytes % (A) 15.8 %; MCH 29.9 pg (27.0-32.0); MCV 90.5 FL (80.0-97.0); Mean Platelet Volume 11.1 FL (9.5-12.2); Monocytes # (A) 1.16 X 10*3/uL (0.20-1.00); Monocytes % (A) 12.5 %; NRBC Per 100 WBC 0 X 10*3/uL (0.00-0.01); Neutrophils # (A) 6.14 X 10*3/uL (1.80-7.70); Neutrophils % (A) 66.2 %; Platelet Count 190 X 10*3/uL (140-440); RBC 6.03 X 10*6/uL (4.40-5.60); RDW 13.5 % (11.5-14.5); WBC 9.28 X 10*3/uL (4.50-10.00)
[2024-09-15 15:33] LABS: Hepatitis A Antibody IgM Nonreactive (Nonreactive); Hepatitis B Core IgM Nonreactive (Nonreactive); Hepatitis B Surface Antigen Nonreactive (Nonreactive); Hepatitis C IgG Antibody Nonreactive (Nonreactive)
[2024-09-15 15:45] LABS: ALT 42 U/L (10-49); AST 33 U/L (14-35); Albumin 3.7 g/dL (3.8-4.9); Albumin/Globulin Ratio 1.42 Ratio (1.60-3.17); Alkaline Phosphatase 46 U/L (41-126); BUN/Creat Ratio 28.75 Ratio (12.00-20.00); Calcium 9.6 mg/dL (8.7-10.3); Chloride 105 mmol/L (96-109); Chol/HDL Ratio 2.73 Ratio; Globulin 2.6 g/dL (1.6-3.3); Glucose 160 mg/dL (70-110); LDL Cholesterol,Calculated 40.7 mg/dL (0.0-131.0); Potassium 5.1 mmol/L (3.5-5.5); Sodium 137 mmol/L (135-145); Total Bilirubin 0.6 mg/dL (0.3-1.2); Total Protein 6.3 g/dL (6.2-8.2)
[2024-09-15 15:46] LABS: Prostate Specific Antigen 1.53 ng/mL (0.000-6.500)
[2024-09-15 19:07] LABS: Urine Creatinine 97.2 mg/dL (39.0-259.0)
[2024-09-16 10:00] LABS: T4/T8 Ratio (CD4:CD8) 5.1 (1.0-3.7)
== END | disposition home or self-care (01) ==
LOC: LABWHC1 08:39
PROVIDERS: ATTEND Internal Medicine
DX: Z12.5 Encounter for screening for malignant neoplasm of prostate (principal); I13.0 Hypertensive heart and chronic kidney disease with heart failure and stage 1 through stage 4 chronic kidney disease, or unspecified chronic kidney disease; I50.9 Heart failure, unspecified; E11.22 Type 2 diabetes mellitus with diabetic chronic kidney disease; N18.9 Chronic kidney disease, unspecified; E78.00 Pure hypercholesterolemia, unspecified; E55.9 Vitamin D deficiency, unspecified; E21.3 Hyperparathyroidism, unspecified
CPT/HCPCS: 36415; 80053; 80061; 80074; 82043; 82306; 82570; 83036; 84153; 84443; 85025; 86355; 86357; 86359; 86360